=== PATIENT | male | born 1975 | race Caucasian/White ===

== ENCOUNTER 2020-05-03 07:41 | Outpatient (REF) | payer OTHER, SELFPAY ==
--- NOTE | ~2020-05-03 | XR_ITS ---
EXAMINATION: XR SHOULDER, LEFT CLINICAL INFORMATION: Pain left shoulder. COMPARISON: None TECHNIQUE: AP external rotation, Grashey, scapular Y, and axillary views of the left shoulder. FINDINGS: The glenohumeral and AC joint space is maintained normal. There is no visible acute fracture or dislocation. The soft tissues are normal. XR/XR shoulder LT min 2V IMPRESSION: Unremarkable left shoulder joint exam.
== END 2020-05-03 07:42 | disposition home or self-care (01) ==
LOC: HO.HOSX 07:41
PROVIDERS: Visit Provider Orthopaedic Surgery
DX: M24.812 Other specific joint derangements of left shoulder, not elsewhere classified (principal)
CPT/HCPCS: 20610; 73030; 99212; J1100

== ENCOUNTER 2020-06-03 12:54 | Outpatient (REF) | payer OTHER, SELFPAY ==
--- NOTE | ~2020-06-03 | MR_ITS ---
EXAMINATION: MRI SHOULDER, LEFT WITHOUT CONTRAST CLINICAL INFORMATION: Left shoulder pain and decreased range of motion. COMPARISON: Left shoulder radiographs dated 05/03/2020. Left shoulder MRI dated 08/21/2019. TECHNIQUE: Multisequence MR imaging of the left shoulder was performed without contrast on a high-field strength scanner. FINDINGS: ROTATOR CUFF: Prominent supraspinatus and infraspinatus tendinosis with intrasubstance and bursal surface partial tearing involving the mid/posterior aspect of the supraspinatus tendon and anterior aspect of the infraspinatus tendon. This measures approximately 2.9 x 2.7 cm (AP by ML) and has significantly increased in prominence when compared to the prior examination. There appear to be articular surface tendon fibers remaining in intact. Mild subscapularis tendinosis, unchanged. No muscle atrophy or fatty infiltration. BICEPS: Normal. CORACOACROMIAL ARCH: The undersurface of the acromion is curved with no subacromial spur. Mild acromioclavicular osteoarthritis, unchanged. Fluid within the subacromial-subdeltoid bursa, similar when compared to the prior examination and consistent with bursitis. LABRUM/CAPSULE: Probable nondisplaced undersurface tear through the periphery of the posterior labrum, increased in prominence when compared to the prior examination. This extends superiorly to the posterosuperior labrum. Intact joint capsule. GLENOHUMERAL JOINT/MARROW: Intact articular cartilage. No acute osseous abnormality. MR/MR shoulder LT wo con IMPRESSION: 1. Prominent supraspinatus and infraspinatus tendinosis with intrasubstance and bursal surface partial tearing, significantly increased when compared to the prior examination now measuring 2.9 x 2.7 cm (AP by ML). There appear to be thin articular surface tendon fibers remaining intact. Stable, mild subscapularis tendinosis. 2. Mild acromioclavicular osteoarthritis and mild subacromial-subdeltoid bursitis, unchanged. 3. Nondisplaced undersurface tearing of the posterior and posterosuperior labrum, increased in prominence when compared to the prior examination.
== END 2020-06-03 12:55 | disposition home or self-care (01) ==
LOC: HO.MRI 12:54
PROVIDERS: Visit Provider Orthopaedic Surgery
DX: M24.812 Other specific joint derangements of left shoulder, not elsewhere classified (principal)
CPT/HCPCS: 73221

== ENCOUNTER → 2020-06-14 10:51 | Outpatient (BNVA) | payer OTHER, SELFPAY | PROVIDERS: Visit Provider Orthopaedic Surgery | DX: M75.102 Unspecified rotator cuff tear or rupture of left shoulder, not specified as traumatic (principal) | CPT/HCPCS: 99212 ==

== ENCOUNTER → 2020-06-21 11:54 | Outpatient (BNVA) | payer OTHER, SELFPAY | PROVIDERS: PCP Family Medicine; Referring Provider Family Medicine; Visit Provider Surgery | DX: K43.2 Incisional hernia without obstruction or gangrene (principal) | CPT/HCPCS: 99202 ==

== ENCOUNTER 2020-06-30 06:55 | Day surgery (SDC) | payer OTHER, SELFPAY ==
[2020-06-24 15:11] VITALS: BMI 39.0
--- NOTE | 2020-06-29 09:05 | HO.ANESPROP2 ---
Documented by User: Nedra Laurent 06/29/20 09:06 HPI - Anesthesia Eval Consult details Narrative: 44yo M for Left Arthroscopic Rotator Cuff Repair PMFSH Active Problems Active Problems: All Active Problems (Updated 06/24/20 @ 15:15 by Santa Randall) Periumbilical hernia (Acute) Laboratory examination ordered as part of a routine general medical examination (Acute) S/P rotator cuff repair (Acute) Incisional hernia (Acute) Tear of left rotator cuff (Acute) Internal derangement of left shoulder (Acute) Past Medical History Medical History Anxiety Chronic low back pain COVID-19 vaccine administered Depression Erectile dysfunction Incisional hernia Insomnia Internal derangement of left shoulder Obesity Seizure disorder Tear of left rotator cuff Family History Family History Mother Lung cancer Surgical History Surgical History H/O colonoscopy History of back surgery History of hernia repair Social History Social History Are you a primary patient care representative to a significant other at home: No Do you presently have visiting nurse or other home services: No Smoking Status: Current every day smoker Packs Per Day: 1 Cigarettes Per Day: 20.0 Years Smoked: 20 Use of substances other than those prescribed or required for medical reasons: Yes Substance Use Type: Marijuana Substance Use Frequency: Daily Have you been hit, kicked, punched, or otherwise hurt by someone within the past year? 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 Meds Allergies Allergy/AdvReac Type Severity Reaction Status Date / Time latex Allergy Intermediate immediate Verified 06/24/20 15:18 contact dermatitis zolpidem Allergy Seizure Verified 06/30/20 08:19 Home Medications Medication Instructions Recorded Confirmed Last Taken Type pregabalin [Lyrica] 150 mg PO QID 06/24/20 06/30/20 06/30/20 History ropinirole 4 mg PO BEDTIME 06/24/20 06/24/20 Unknown History Exam Exam Date and Time: June 29, 2020 0905 Height,Weight and Vital Signs: Height 6 ft Weight 130.635 kg Assessment and Plan Assessment Anesthesia Assessment: Chart Reviewed Documented by User: Binh Jacob 06/30/20 08:34 PMFSH Past Medical History Medical History Anxiety Chronic low back pain COVID-19 vaccine administered Depression Erectile dysfunction Incisional hernia Insomnia Internal derangement of left shoulder Obesity Seizure disorder Tear of left rotator cuff Family History Family History Mother Lung cancer Surgical History Surgical History H/O colonoscopy History of back surgery History of hernia repair Social History Social History Are you a primary patient care representative to a significant other at home: No Do you presently have visiting nurse or other home services: No Smoking Status: Current every day smoker Packs Per Day: 1 Cigarettes Per Day: 20.0 Years Smoked: 20 Use of substances other than those prescribed or required for medical reasons: Yes Substance Use Type: Marijuana Substance Use Frequency: Daily Have you been hit, kicked, punched, or otherwise hurt by someone within the past year? 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
[2020-06-30] VITALS (20 sets, daily range): BP systolic 118–160; BP diastolic 59–91; PULSE 47–80; RESP 14–20; TEMP 36.1–36.9; O2SAT 94–100
[2020-06-30] MEDS: Lactated Ringers 1,000 ML 100 ML IVCONT (07:19)
--- NOTE | 2020-06-30 07:53 | PC.NURSE ---
pt being blocked by anesthesia marked verbalized understanding pwd vss
--- NOTE | 2020-06-30 08:22 | PC.NURSE ---
vss after and before blocking resting comfortably nad pwd resp easy and reg
--- NOTE | 2020-06-30 10:46 | PM.OP ---
Brief Operative Note Date of Service: 06/30/20 Pre-op diagnosis: left rotator cuff tear Post-op diagnosis: same Procedure: left rotator cuff repair Implants: Short and Nephew helacoil 4.5 double loaded x1 Smtih and Nephew knotless 5.0 x2 Surgeon: Yuri Cerda MD Anesthesia: GETA and regional Was an Dental Service Chief used for this Procedure?: Yes Dental Service Chief: Tahmina Valente Estimated blood loss (mL): 20 IV fluids (mL): 1,000 Pathology: none sent Condition: stable Disposition: PACU
--- NOTE | 2020-06-30 10:52 | P.OP_ITS ---
Operative Note Operative Note Date of Service: 06/30/20 Narrative: Pre-op diagnosis: left rotator cuff tear Post-op diagnosis: same Procedure: left rotator cuff repair Implants: Short and Nephew helacoil 4.5 double loaded x1 Smtih and Nephew knotless 5.0 x2 Surgeon: Yuri Cerda MD Anesthesia: GETA and regional Was an [facility]wife [facility] Birth [facility] Owner used for this Procedure?: Yes Midwife [facility] Birth [facility] Owner: Tahmina Valente Estimated blood loss (mL): 20 IV fluids (mL): 1,000 Pathology: none sent Condition: stable Disposition: PACU Procedure in detail: Patient was brought to the operating room and placed the the beach chair position. All bony prominences were well padded and he was prepped and draped in standard sterile fashion. A time out was called to identify proper site, proper procedure and proper surgeon. IV antibiotics per weight were administered. I began by making a posterolateral stab incision with a 15 blade. A blunt trochar was placed into the glenohumeral joint and I insufflated the joint with saline and a 30 degree arthroscope was placed. I established an outside- in anterior portal just distal to the biceps tendon. I then began my inspection of the glenohumeral joint. There were no cartilage changes and the subscapularis and biceps anchor and labrum were intact and in excellent condition. There was an undersurface supraspinatus tear. I then removed the trochar and entered the subacromial space. A direct lateral portal was then established and I performed a bursectomy. The cuff was then examined. There was a full thickness tear of the supraspinatus measuring approximately 1 cm in diameter without retraction. I used a shaver to identify the healthy tissue and a gio to the gio down the portion of exposed footprint. I then placed one medial row double loaded anchor and added one looped suture and one suture tape and brought 3 limbs to an anterior knotless anchor and then four limbs to a posterior knotless anchor. I had excellent compression of the cuff and reproduction of the footprint. Once I was satisfied with the repair final images were captured. I performed a minimal decompression of the acromion. I then removed all instrumentation. Portals were closed with nylon and sterile dressings were applied.
[2020-06-30] MEDS: oxyCODONE HCl Immed Release 5 MG TABLET 10 MG PO ×2 (11:09→15:00)
[2020-06-30] MEDS: fentaNYL citrate/PF 100 MCG/2 ML VIAL 50 MCG IVPUSH ×2 (11:10→11:15)
[2020-06-30] MEDS: ondansetron HCL 4 MG/2 ML VIAL IVPUSH (11:30)
[2020-06-30] MEDS: HYDROmorphone HCl 0.5 MG/0.5 ML SYRINGE IVPUSH ×3 (11:50→12:15)
== END 2020-06-30 15:36 | disposition home or self-care (01) ==
PROVIDERS: PCP Family Medicine; Visit Provider Orthopaedic Surgery
PROC: (CPT 29827; principal; 2020-06-30 08:30)
DX: M75.102 Unspecified rotator cuff tear or rupture of left shoulder, not specified as traumatic (principal); G40.909 Epilepsy, unspecified, not intractable, without status epilepticus; G89.29 Other chronic pain; M54.5 Low back pain; Z98.1 Arthrodesis status; Z79.899 Other long term (current) drug therapy; F17.210 Nicotine dependence, cigarettes, uncomplicated; F12.90 Cannabis use, unspecified, uncomplicated; Z91.040 Latex allergy status; Z88.8 Allergy status to other drugs, medicaments and biological substances
CPT/HCPCS: 29827; 29826; C1713; J0171; J0690; J1100; J1170; J2250; J2370; J2405; J2550; J3010

== ENCOUNTER → 2020-07-09 12:34 | Outpatient (BNVA) | payer OTHER, SELFPAY | PROVIDERS: PCP Family Medicine; Visit Provider Physician Assistant | DX: M24.812 Other specific joint derangements of left shoulder, not elsewhere classified (principal); M75.102 Unspecified rotator cuff tear or rupture of left shoulder, not specified as traumatic; Z98.890 Other specified postprocedural states | CPT/HCPCS: 99212 ==

== ENCOUNTER 2020-07-21 11:18 | Outpatient (REF) | payer OTHER, SELFPAY ==
--- NOTE | ~2020-07-21 | CT_ITS ---
EXAMINATION: CT ABDOMEN AND PELVIS WITHOUT CONTRAST CLINICAL INFORMATION: Incisional hernia. COMPARISON: None TECHNIQUE: Multidetector volumetric imaging was performed from the superior aspect of the liver through the pubic symphysis. Sagittal and coronal reformatted images were obtained on the technologist's workstation. This CT examination was performed using dose optimization techniques as appropriate, variously including the following: *Automated exposure control *Adjustment of mA and/or kV according to patient size (this includes techniques or standardized protocols for targeted exams where dose is matched to indication/reason for exam; i.e. extremities or head) *Use of iterative reconstruction technique DLP: 923 mGy-cm FINDINGS: LUNG BASES: Partially visualized subpleural nodule within the posterior right lower lobe measuring 0.4 cm (axial image 1/863). Lateral left lower lobe noncalcified nodule measuring 0.6 cm (axial image 70/863). Otherwise, the visualized lung bases are clear. LIVER, GALLBLADDER, AND BILIARY TREE: The liver is normal in size, shape, and attenuation. No focal hepatic lesion or biliary ductal dilatation is present. The gallbladder is unremarkable with no evidence of radiopaque gallstones, gallbladder wall thickening, or obvious pericholecystic inflammatory changes. PANCREAS: Unremarkable. SPLEEN: Unremarkable. ADRENAL GLANDS: Right adrenal nodule measuring 2 x 2.5 x 2 cm (AP x ML x CC) and 1.1 Hounsfield units. Left adrenal nodule measuring 1.5 x 2 x 2.1 cm (AP x ML x CC) and 15 Hounsfield units. KIDNEYS AND URETERS: Malrotated right kidney. Normal renal size and contour. No obvious renal parenchymal lesion, however, evaluation is limited without IV contrast. No renal or ureteral stone. No hydronephrosis or hydroureter. BLADDER: Partially distended and unremarkable. GASTROINTESTINAL TRACT: Unremarkable rectosigmoid anastomosis. No bowel wall thickening or associated inflammatory change. No small or large bowel obstruction. Unremarkable appendix. PERITONEAL CAVITY: No intra-abdominal free air or free fluid. No organized fluid collection/abscess formation. ABDOMINAL WALL: Diastasis of the rectus abdominis muscles extending from the supraumbilical anterior abdomen inferiorly to the anterior pelvic wall. Overall, this area measures up to 23.1 cm in craniocaudal dimension and 9.4 cm in ML dimension inferior to the umbilicus. There are associated fat-containing hernias both on the right and the left at the superior margin with the neck on the right measuring 2.2 cm and the neck on the left measuring 3.9 cm. Small bowel loops abut the diastasis without significant bowel herniation. No associated inflammatory or ischemic change. LYMPH NODES: No significant lymphadenopathy. VASCULAR: Unremarkable. PELVIC VISCERA: The prostate and seminal vesicles are unremarkable. OSSEOUS STRUCTURES: Grade 1 anterolisthesis with posterior stabilization hardware at L4-L5. No evidence of hardware complication. Partial sacralization of the L5 vertebral body. CT/CT abdomen pelvis wo con IMPRESSION: 1. Diastasis of the rectus abdominis muscles extending from the supraumbilical region to the anterior pelvic wall. Overall, this measures up to 23.1 cm in craniocaudal dimension as well as 9.4 cm in maximal ML dimension inferior to the umbilicus. Adjacent fat-containing hernias along the superior margin of the diastasis with a neck measuring 2.2 cm on the right and 3.9 cm on the left. No significant bowel herniation. No associated inflammatory or ischemic change. 2. Bilateral lower lobe noncalcified nodules measuring up to 0.6 cm within the left lower lobe. According to the UPDATED 2017 Fleischner Society recommendations, the advised followup imaging for multiple solid nodules, the largest measuring 6 mm or greater, is: LOW RISK PATIENT: CT at 3-6 months, then consider CT at 18-24 months. HIGH RISK PATIENT: CT at 3-6 months, then at 18-24 months. 3. Bilateral adrenal nodules. The nodule on the right measures up to 2.5 cm and 1.1 Hounsfield units, consistent with a lipid-rich adenoma. No followup imaging is recommended. The nodule on the left measures up to 2.1 cm and 15 Hounsfield units, consistent with a probable adenoma. Adrenal washout CT or chemical shift MRI is recommended to help further evaluate. 4. No intra-abdominal lymphadenopathy or ascites.
== END 2020-07-21 11:19 | disposition home or self-care (01) ==
LOC: HO.CT 11:18
PROVIDERS: Visit Provider Surgery
DX: K43.2 Incisional hernia without obstruction or gangrene (principal)
CPT/HCPCS: 74176

== ENCOUNTER → 2020-07-29 11:20 | Outpatient (BNVA) | payer OTHER, SELFPAY | PROVIDERS: PCP Family Medicine; Referring Provider Family Medicine; Visit Provider Surgery | DX: K42.9 Umbilical hernia without obstruction or gangrene (principal); M62.08 Separation of muscle (nontraumatic), other site | CPT/HCPCS: 99212 ==

== ENCOUNTER → 2020-08-06 10:54 | Outpatient (BNVA) | payer OTHER, SELFPAY | PROVIDERS: Visit Provider Physician Assistant | DX: Z98.890 Other specified postprocedural states (principal) | CPT/HCPCS: 99212 ==

== ENCOUNTER → 2020-09-17 09:42 | Outpatient (BNVA) | payer OTHER, SELFPAY | PROVIDERS: PCP Family Medicine; Visit Provider Physician Assistant | DX: Z98.890 Other specified postprocedural states (principal) | CPT/HCPCS: 99212 ==

== ENCOUNTER 2020-10-21 09:00 | Outpatient (RCR) | payer OTHER, SELFPAY ==
--- NOTE | 2020-09-06 09:48 | MHC.PT.EP ---
[facility] [place] [facility] [place] [facility] [place] Office [address] [phone] F: [phone] F: [phone] F: [phone] F: [phone] Physical Therapy Plan of Care Date of Evaluation: Date of Surgery: 06/30/20 Diagnosis: S/P RC repair Assessment: HILARY IS A PLEASANT 44 YO MALE WHO PRESENTS S/P SUPRASPINATUS REPAIR 06/30/20. DUE TO AN UNRELATED MEDICAL ISSUE HIS PT WAS DELAYED DUE TO HOSPITAL ADMIT. UPON EXAM HE DEMONSTRATES DECREASED SHOULDER ROM AND STRENGTH, ALTERED POSTURE AND POSITIONING WITH INCREASED UPPER TRAP COMPENSATION AND INCREASED PAIN. FUNCTIONAL LIMITATION INCLUDE DECREASED TOLERANCE TO LIFTING, REACHING, PUSHING AND PULLING, DECREASED ABILITY TO PERFORM HOMEMAKING AND SELF CARE TASKS, INABILITY TO PERFORM WORK TASKS, DECREASED PARTICIPATION IN RECREATIONAL AND COMMUNITY ACTIVITIES AND DISRUPTED SLEEP. Frequency and Duration: The patient will be seen 2 X WEEK FOR 6 WEEKS Short Term Goals: INITATE HEP AND PROMOTE SELF MANAGEMENT OF SYMPTOMS IN 2 VISITS Awake Overnight Monitor Goals: Full, pain free ROM in 6 weeks Full UE strength, pain free in 8 weeks To perform computer and work tasks without restriction and pain no greater than 2/10 in [address] at minimum of 5# into cabinet at shoulder height in 6 weeks Treatment Plan: Modalities to reduce pain, spasms and effusion. Manual therapy to restore motion and function. Therapeutic exercise to improve strength and flexibility. Neuromuscular re-education for posture and balance. Therapeutic activities to return to functional activities of daily living. Electronically signed by: BLANCHE MARINELLI PT, DPT Please sign and return to therapist. Thank you for your referral.
--- NOTE | 2020-11-23 11:30 | MHC.PT.DC ---
[facility] [place] Office [place] Office [place] Office [address] [phone] F: [phone] F: [phone] F: [phone] F: [phone] Physical Therapy Discharge Report Diagnosis: RTC repair Date of Surgery: 06/30/20 Date of Evaluation: 09/06/20 Date of Discharge: 10/21/20 Treatments to Date: 11 Cancellations to Date: 0 No Shows to Date: 1 Discharge Status: Improved Function Patient Elected to Stop Discharge Summary: Bryan did not schedule additional PT visits. At last attended session he was progressing we and able to perform floor to waist lifting and pushing/pulling with appropriate body mechanics. He continued to demonstrate difficulty with overhead motion. He has not been to PT in one month and is being DCed at this time. Current status unknown. Electronically signed by: Edna Stewart PT, DPT Please sign and return to therapist. Thank you for your referral.
== END 2020-11-23 11:31 | disposition home or self-care (01) ==
LOC: HO.PT 09:00
PROVIDERS: Visit Provider Physician Assistant
DX: M75.102 Unspecified rotator cuff tear or rupture of left shoulder, not specified as traumatic (principal)
CPT/HCPCS: 97110; 97150; 97161; 97530; 97535

== ENCOUNTER → 2020-10-29 09:19 | Outpatient (BNVA) | payer OTHER, SELFPAY | PROVIDERS: Visit Provider Physician Assistant | DX: Z98.890 Other specified postprocedural states (principal) | CPT/HCPCS: 99212 ==

== ENCOUNTER 2021-07-22 12:06 | Outpatient (REF) | payer OTHER, SELFPAY ==
[2021-07-22 14:42] LABS: Alanine Aminotransferase 49 U/L (0-40); Alkaline Phosphatase 59 U/L (39-117); Anion Gap 11 (12-20); Aspartate Amino Transferase 34 U/L (5-37); Bilirubin Total 0.5 mg/dL (0.0-1.0); Blood Urea Nitrogen 16 mg/dL (9-16); Carbon Dioxide 26 mmol/L (22-29); Chloride 107 mmol/L (96-108); Cholesterol 203 mg/dL; Estimated Glomerular Filt Rate > 60; Glucose Fasting 91 mg/dL (60-99); HDL Cholesterol 30 mg/dL; LDL Cholesterol Calculated 130 mg/dl; Potassium 4.8 mmol/L (3.3-5.1); Sodium 139 mmol/L (135-145); Total Protein 6.9 g/dL (6.5-8.0); Triglycerides 215 mg/dL
[2021-07-22 15:03] LABS: Prostate Specific Antigen Scr 0.33 ng/mL (<0.05-4.0); TSH reflex Free T4 0.46 uIU/mL (0.32-4.0)
== END 2021-07-22 12:07 | disposition home or self-care (01) ==
LOC: HO.WFDLDS 12:06
PROVIDERS: Visit Provider Family Medicine
DX: Z00.00 Encounter for general adult medical examination without abnormal findings (principal); Z12.5 Encounter for screening for malignant neoplasm of prostate
CPT/HCPCS: 36415; 80053; 80061; 84153; 84443

== ENCOUNTER 2022-04-06 11:47 | Outpatient (REF) | payer OTHER, SELFPAY ==
[2022-04-06 14:01] LABS: Appearance Urine Clear; Color Urine Yellow; Glucose Urine UA Negative (Negative); Leukocyte Esterase Urine Negative (Negative); Nitrite Urine Negative (Negative); PH 6.5 (5.0-9.0); Specific Gravity - Urine 1.015 (1.005-1.025); Urine Blood Negative (Negative); Urine Ketones Negative (Negative); Urine Protein Negative (Neg-Trace)
[2022-04-06 14:08] LABS: Alanine Aminotransferase 20 U/L (0-40); Albumin Level 4.3 g/dL (3.5-5.0); Alkaline Phosphatase 57 U/L (39-117); Anion Gap 13 (12-20); Aspartate Amino Transferase 20 U/L (5-37); Bilirubin Total 0.6 mg/dL (0.0-1.0); Blood Urea Nitrogen 16 mg/dL (9-16); Calcium 9.2 mg/dL (8.4-10.2); Carbon Dioxide 27 mmol/L (22-29); Chloride 108 mmol/L (96-108); Cholesterol 212 mg/dL; Estimated Glomerular Filt Rate > 60; Glucose Fasting 85 mg/dL (60-99); HDL Cholesterol 33 mg/dL; LDL Cholesterol Calculated 148 mg/dl; Potassium 4.7 mmol/L (3.3-5.1); Sodium 143 mmol/L (135-145); Total Protein 6.9 g/dL (6.5-8.0); Triglycerides 158 mg/dL
[2022-04-06 14:25] LABS: Prostate Specific Antigen Scr 0.35 ng/mL (<0.05-4.0); TSH reflex Free T4 0.48 uIU/mL (0.32-4.0)
[2022-04-06 14:38] LABS: Creatinine Urine 59.23 mg/dL; Microalbumin Urine < 5.0 mg/L
== END 2022-04-06 11:48 | disposition home or self-care (01) ==
LOC: HO.WFDLDS 11:47
PROVIDERS: Visit Provider Family Medicine
DX: Z00.00 Encounter for general adult medical examination without abnormal findings (principal); Z12.5 Encounter for screening for malignant neoplasm of prostate; I10 Essential (primary) hypertension
CPT/HCPCS: 36415; 80053; 80061; 81003; 82043; 84153; 84443

== ENCOUNTER 2022-10-02 11:20 | Outpatient (REF) | payer OTHER, SELFPAY ==
[2022-10-03 01:51] LABS: Anion Gap 11 (12-20); Blood Urea Nitrogen 17 mg/dL (9-16); Calcium 8.8 mg/dL (8.4-10.2); Carbon Dioxide 23 mmol/L (22-29); Chloride 112 mmol/L (96-108); Cholesterol 183 mg/dL; Estimated Glomerular Filt Rate > 60; Glucose Fasting 86 mg/dL (60-99); HDL Cholesterol 33 mg/dL; LDL Cholesterol Calculated 112 mg/dl; Potassium 4.2 mmol/L (3.3-5.1); Sodium 142 mmol/L (135-145); Triglycerides 192 mg/dL
== END 2022-10-02 11:21 | disposition home or self-care (01) ==
LOC: HO.LAB 11:20
PROVIDERS: PCP Family Medicine; Visit Provider Family Medicine
DX: Z00.00 Encounter for general adult medical examination without abnormal findings (principal); E78.5 Hyperlipidemia, unspecified
CPT/HCPCS: 36415; 80048; 80061

== ENCOUNTER 2022-10-24 10:31 | Outpatient (AMB) | payer OTHER, SELFPAY ==
[2022-10-24 10:33] VITALS: BP 122/68; PULSE 66; RESP 20; O2SAT 99; BMI 35.1
--- NOTE | 2022-10-24 10:33 | MHC.PC.OV ---
Vital Signs 10/24/22 10:33 Height 6 ft Weight 259 lb 2 oz BMI 35.1 BP 122/68 Blood Pressure Location Lt brachial Position Sitting Respiration 20 Pulse 66 Pulse Source Pulse Oximeter Pulse Oximetry (%) 99 Oxygen Delivery Method Room Air Intake Visit Reasons: f/u HLD Intake Note: Patient is here for follow up on blood work. Allergies latex Allergy (Intermediate, Verified 10/24/22 10:35) immediate contact dermatitis zolpidem Allergy (Verified 10/24/22 10:35) Seizure Tobacco use date assessed: 10/24/22 Dental Screening Dental Screen Date: 10/24/22 Did you have a dental visit in the last 12 months?: No Did you have a dental problem in the last 6 months where you did not have access to dental care?: No Was dental information given to patient?: Patient declined HPI f/u HLD HPI Details 46 y/o male presents to f/u hyperlipidemia. Pt had been losing weight and working at lifestyle changes. Labs were drawn 10/02/22. Reviewed labs with pt. Triglycerides 192. TC 183. LDL 112 - improved from 148. HDL low at 33. Pt continues to lose weight - 265 lbs in June to 259 lbs in October. HPI Comments History of Present Illness Details Documentation assistance for Claude Kelsey MD, was provided by Baljinder Caban, Twisting Operator on 10/24/2022 10:56 AM EST. I, Dr. Kelsey, have read, observed, and verified documentation. PFSH Medical History Anxiety Chronic low back pain COVID-19 vaccine administered Depression Diastasis recti Erectile dysfunction Incisional hernia Insomnia Internal derangement of left shoulder Obesity Seizure disorder Tear of left rotator cuff Surgical History H/O colonoscopy History of back surgery History of hernia repair History of rotator cuff surgery Family History Mother Lung cancer Social History Housing: Condominium Are you a primary interior plant caretaker to a significant other at home: No Do you presently have visiting nurse or other home services: No Alcohol intake: never Patient Tobacco Use Status: Current everyday Tobacco user Tobacco use type: Cigarette Cigarette Packs Per Day: 0.5 Cigarettes Per Day: 10 Years Smoked: 20 e-Cigarette/Vaping Use: Never Used Second Hand Smoke Exposure: Yes Substance Use Type: Marijuana service: No Current occupational status: employed 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 Bryan Lombardi, Alanna Schreiber, Noman Andrade and colleagues, with an educational christina from [employer]. Review of Systems Const Denies chills, Denies fatigue, Denies fever(s), Denies headache(s) and Denies weakness ENT Denies dizziness and Denies headache(s) Card Denies dyspnea Resp Denies cough, Denies dyspnea, Denies wheezing and Denies other (shortness of breath) Musc Denies numbness and Denies tingling Neuro Denies dizziness, Denies headache(s), Denies numbness, Denies tingling and Denies weakness Psych Denies anxiety and Denies depression Endo Denies fatigue Aller/Immun Denies wheezing Physical exam (Primary Care) Vital Signs: Last Vital Signs Pulse 66 10/24/22 10:33 Resp 20 10/24/22 10:33 BP 122/68 10/24/22 10:33 Pulse Ox 99 10/24/22 10:33 Oxygen Delivery Method Room Air 10/24/22 10:33 BMI result Body Mass Index 35.1 Tobacco/Smoking Status: Tobacco use Status Tobacco use date assessed 10/24/22 10/24/22 10:37 Patient Tobacco Use Status Current everyday Tobacco 10/24/22 10:37 Tobacco use type Cigarette 10/24/22 10:37 e-Cigarette/Vaping Use Never Used 10/24/22 10:37 Thrive Assessment: Date of Thrive Assessment Date Thrive assessed 08/01/21 10/24/22 10:37 Const General: well developed; No acute distress Nutritional Appearance: well nourished Orientation/consciousness: patient oriented x3 HENMT Head: Yes normocephalic and Yes atraumatic Eyes General: appearance normal, both eyes and all related structures Pupils: Equal, round and reactive pupils present EOM: EOMs intact bilaterally Resp Effort & Inspection: normal respiratory effort Neuro General: patient oriented x3 and gait normal Cranial nerves: Yes Equal, round and reactive pupils present Psych Affect: normal affect Assessment and Plan Assessment & Plan (1) Hyperlipidemia: Code(s): E78.5 - Hyperlipidemia, unspecified Plan: LDL cholesterol improved Continue weight loss and diet lower in saturated fats and cholesterol Increase exercise (2) Low HDL (under 40): Code(s): E78.6 - Lipoprotein deficiency Plan: Ongoing low HDL Increase exercise (3) Chronic low back pain: Comment: taking lyrica Code(s): M54.5 - Low back pain; G89.29 - Other chronic pain Plan: Chronic right low back pain with radiation into right leg Patient requests referral to Dr. Alvarez - referral made Orders: Referrals Neurosurgery Referral G89.29 - Other chronic pain, M54.5 - Low back pain Coding Level of Care Code Est Pt Level 3 (35796) Diagnoses Hyperlipidemia E78.5 Low HDL (under 40) E78.6 Chronic low back pain M54.5; G89.29
== END 2022-10-24 11:03 | disposition home or self-care (01) ==
PROVIDERS: PCP Family Medicine; Visit Provider Family Medicine
DX: E78.5 Hyperlipidemia, unspecified (principal); E78.6 Lipoprotein deficiency; M54.50 Low back pain, unspecified; G89.29 Other chronic pain
CPT/HCPCS: 99213

== ENCOUNTER 2023-04-24 10:41 | Outpatient (AMB) | payer OTHER, SELFPAY ==
[2023-04-24 10:45] VITALS: BP 132/78; PULSE 71; O2SAT 99; BMI 34.3
--- NOTE | 2023-04-24 10:45 | A.OFFPC_ITS ---
Vital Signs 04/24/23 10:45 Height 6 ft Weight 253 lb BMI 34.3 BP 132/78 Blood Pressure Location Rt brachial Position Sitting Pulse 71 Pulse Source Pulse Oximeter Pulse Oximetry (%) 99 Oxygen Delivery Method Room Air Intake Visit Reasons: f/u hypercholesterolemia Intake Note: Patient is here to follow up on cholesterol today, and complains of nasty cough since last week with mucous. Allergies latex Allergy (Intermediate, Verified 04/24/23 10:48) immediate contact dermatitis zolpidem Allergy (Verified 04/24/23 10:48) Seizure Tobacco use date assessed: 04/24/23 Dental Screening Dental Screen Date: 04/24/23 Did you have a dental visit in the last 12 months?: Yes Did you have a dental problem in the last 6 months where you did not have access to dental care?: No Was dental information given to patient?: Patient has dentist HPI f/u hypercholesterolemia HPI Details 47 y/o male presents to f/u hypercholest erolemia. No recent labs to review for his lipids. Pt continues to lose weight - from 259 lbs in October to 253 lbs on 04/24/23. Pt reports abd. pain PFSH Medical History Diastasis recti COVID-19 vaccine administered Incisional hernia Tear of left rotator cuff Internal derangement of left shoulder Obesity Seizure disorder Chronic low back pain Insomnia Erectile dysfunction Depression Anxiety Surgical History History of rotator cuff surgery H/O colonoscopy History of hernia repair History of back surgery Family History Mother Lung cancer Social History Housing: Condominium Are you a primary career and technology education teacher to a significant other at home: No Do you presently have visiting nurse or other home services: No Alcohol intake: never Comment: medicated, see MAR Patient Tobacco Use Status: Current everyday Tobacco user Tobacco use type: Cigarette Cigarette Packs Per Day: 0.5 Cigarettes Per Day: 10 Years Smoked: 20 e-Cigarette/Vaping Use: Never Used Second Hand Smoke Exposure: Yes Substance Use Type: Marijuana service: No Current occupational status: employed 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 1. Little interest or pleasure in doing things: not at all 2. Feeling down, depressed, or hopeless: not at all 3. Trouble falling or staying asleep, or sleeping too much: not at all 4. Feeling tired or having little energy: not at all 5. Poor appetite or overeating: not at all 6. Feeling bad about yourself - or that you are a failure or have let yourself or your family down: not at all 7. Trouble concentrating on things, such as reading the newspaper or watching television: not at all 8. Moving or speaking so slowly that other people could have noticed. Or the opposite - being so fidgety or restless that you have been moving around a lot more than usual: not at all 9. Thoughts that you would be better off or of hurting yourself in some way: not at all Total score: 0 Depression Screening Interpretation: Negative Depression Screening Done: Yes Source: Developed by Drs. Bryan Lombardi, Alanna Schreiber, Noman Andrade and colleagues, with an educational christina from [employer] Thrive Questionnaire Date Thrive assessed: 04/24/23 I am a: Patient What is your living situation today?: I have a steady place to live Within the past 12 months, did the food you bought not last and you didn't have the money to get more?: Never true Within the past 12 months, did you worry whether your food would run out before you got money to buy more?: Never true Do you have trouble paying for medicines?: No Do you have trouble getting transportation to medical appointments?: No Do you have trouble paying your heating and electricity bill?: No Do you have trouble taking care of your child, family member or friend?: No Do you have trouble with day-to-day activities such as bathing, preparing meals, shopping, managing finances, etc.?: No Are you currently unemployed and looking for a job?: No Are you interested in more education?: No THRIVE Score: 0 AUDIT C Alcohol Use Questionnaire (AUDIT-C) 1. How often do you have a drink containing alcohol?: Never 3. How often do you have six or more drinks on one occasion?: Never Total Score: 0 BABAR-7 AMB Questionnaire BABAR-7 Date BABAR - 7 assessed: 04/24/23 Feeling nervous, anxious, or on edge: 3 = Nearly every day Not being able to stop or control worryin = Nearly every day Worrying too much about different things: 3 = Nearly every day Trouble relaxin = Nearly every day Being so restless that it is hard to sit still: 3 = Nearly every day Becoming easily annoyed or irritable: 2 = More than half the days Feeling afraid as if something awful might happen: 3 = Nearly every day Total BABAR-7 score (0-4 normal; 5-9 mild; 10-14 moderate; 15-21 severe): 20 Source: Developed by Drs. Bryan Lombardi, Alanna Schreiber, Noman Andrade and colleagues, with an educational christina from [employer] Review of Systems Const Denies chills, Denies fatigue, Denies fever(s), Denies headache(s) and Denies weakness ENT Denies dizziness and Denies headache(s) Card Denies chest pain, Denies lightheadedness, Denies dyspnea and Denies other (Palpitations) Resp Denies cough, Denies dyspnea, Denies wheezing and Denies other ( shortness of breath) GI Reports abdominal pain Musc Denies numbness and Denies tingling Neuro Denies dizziness, Denies headache(s), Denies numbness, Denies tingling, Denies paresthesias and Denies weakness Psych Denies anxiety and Denies depression Endo Denies fatigue Aller/Immun Denies wheezing Physical exam (Primary Care) Vital Signs: Last Vital Signs Pulse 71 04/24/23 10:45 BP 132/78 04/24/23 10:45 Pulse Ox 99 04/24/23 10:45 Oxygen Delivery Method Room Air 04/24/23 10:45 BMI result Body Mass Index 34.3 Tobacco/Smoking Status: Tobacco use Status Tobacco use date assessed 04/24/23 04/24/23 10:49 Patient Tobacco Use Status Current everyday Tobacco 04/24/23 10:49 Tobacco use type Cigarette 04/24/23 10:49 e-Cigarette/Vaping Use Never Used 04/24/23 10:49 PHQ-9: PHQ-9 Score PHQ-9: Total score 0 04/24/23 11:00 Depression Screening Interpretation: Negative Thrive Assessment: Date of Thrive Assessment Date Thrive assessed 04/24/23 04/24/23 10:58 Const General: no acute distress and well developed Nutritional Appearance: well nourished Orientation/consciousness: patient oriented x3 HENMT Head: Yes normocephalic and Yes atraumatic Eyes General: appearance normal, both eyes and all related structures Pupils: Equal, round and reactive pupils present EOM: EOMs intact bilaterally Resp Effort & Inspection: normal respiratory effort Auscultation: clear to auscultation bilaterally Cardio Rate: regular rate Rhythm: regular rhythm Heart sounds: S1 normal heart sound present, S2 normal heart sound present, no gallops, no murmurs and no rubs GI Other: Large umbillical hernia Neuro General: patient oriented x3 and gait normal Cranial nerves: Yes Equal, round and reactive pupils present Psych Affect: normal affect Assessment and Plan Assessment & Plan (1) Hyperlipidemia: Code(s): E78.5 - Hyperlipidemia, unspecified Plan: Lipids?much?improved?though?HDL?is?still?too?low Continue?diet?low?in?saturated?fats?and?cholesterol Increase?exercise (2) Bronchitis: Code(s): J40 - Bronchitis, not specified as acute or chronic Plan: Recent?viral?illness?which?has?re solved?but?patient?has?lingering?symptoms?and?bronchitis Gave?him?a?script?for?Z-Giovani?and?short?course?of?prednisone Advised?smoking?cessation (3) Smoker: Code(s): F17.200 - Nicotine dependence, unspecified, uncomplicated Plan: Advised?weaning?and?cessation. Patient?wants?to?consider?this?t his?year?and?I?let?him?know?he?can?contact?me?to?discuss?further. (4) Umbilical hernia: Code(s): K42.9 - Umbilical hernia without obstruction or gangrene Plan: History?of?umbilical?hernia?repair. Had?been?seen?by?General?surgery?and?at?that?time?there?was?no?indication?for?bridges rgery. However,?with?ongoing?weight?loss, patient?notes?worsening?pain?at?this?area. Referred?back?to?General?surgery. Orders: Orders Comprehensive [place]. Panel Fast Today E78.6 - Lipoprotein deficiency, Z00.00 - Encounter for general adult medical examination without abnormal findings PT Evaluation and Treatment Today G89.29 - Other chronic pain, M54.5 - Low back pain Lipid Panel Today Z00.00 - Encounter for general adult medical examination without abnormal findings Referrals General Surgery Referral K42.9 - Umbilical hernia without obstruction or gangrene Medications: New prednisone 40 mg (2 x 20 mg) PO DAILY 10 tabs 0RF 5 days Coding Level of Care Code Est Pt Level 3 (34989) Diagnoses Hyperlipidemia E78.5 Bronchitis J40 Smoker F17.200 Umbilical hernia K42.9
== END 2023-04-24 11:15 | disposition home or self-care (01) ==
PROVIDERS: PCP Family Medicine; Visit Provider Family Medicine
DX: E78.5 Hyperlipidemia, unspecified (principal); J40 Bronchitis, not specified as acute or chronic; F17.200 Nicotine dependence, unspecified, uncomplicated; K42.9 Umbilical hernia without obstruction or gangrene
CPT/HCPCS: 99213

== ENCOUNTER 2023-05-08 13:28 | Outpatient (AMB) | payer OTHER, SELFPAY ==
[2023-05-08 13:29] VITALS: BP 132/78; PULSE 71; BMI 34.3
--- NOTE | 2023-05-08 13:29 | MHC.OFFVIS ---
Intake Vital Signs 05/08/23 13:29 Height 6 ft Weight 253 lb BMI 34.3 BP 132/78 Blood Pressure Location Rt brachial Position Sitting Pulse 71 Intake Visit Reasons: Umbilical hernia Intake Note: Patient referred by PCP Dr. Kelsey for umbilical hernia. Present for yrs. Patient c/o: bulging, painful. Denies constipation, diarrhea. Hot Walker Required: No Accompanied by: Spouse Allergies latex Allergy (Intermediate, Verified 05/08/23 13:33) immediate contact dermatitis zolpidem Allergy (Verified 05/08/23 13:33) Seizure Medication List - Last Reconciled 05/08/23 by Piotr Farfan MD pregabalin 150 mg PO QID 90 days topiramate 50 mg PO DAILY 90 days HPI HPI Comments History of Present Illness Details Patient presents because of symptomatic ventral hernia. Twenty some odd years ago in [place] patient exploratory laparotomy for perforated diverticulitis. Apparently had primary anastomosis and no colostomy. Over the last 10 or so years he has been complaining of a left incisional mass/hernia. He was seen by a general surgeon for this who mandated he lose weight before any procedure will be undertaken along with stopping his cigarette smoking. Patient has lost approximately 60 lb but continues to smoke approximately half pack a day of cigarettes. Patient otherwise tolerating his diet although he has low appetite secondary to hernia discomfort. He is having regular bowel habits. Chart was reviewed and patient evaluated. Patient was present with his significant other/ [facility] Medical History Diastasis recti COVID-19 vaccine administered Incisional hernia Tear of left rotator cuff Internal derangement of left shoulder Obesity Seizure disorder Chronic low back pain Insomnia Erectile dysfunction Depression Anxiety Surgical History History of rotator cuff surgery H/O colonoscopy History of hernia repair History of back surgery Family History Mother Lung cancer Social History Housing: Condominium Are you a primary critical care rn to a significant other at home: No Do you presently have visiting nurse or other home services: No Alcohol intake: never Comment: medicated, see MAR Patient Tobacco Use Status: Current everyday Tobacco user Tobacco use type: Cigarette Cigarette Packs Per Day: 0.5 Cigarettes Per Day: 10 Years Smoked: 20 e-Cigarette/Vaping Use: Never Used Second Hand Smoke Exposure: Yes Substance Use Type: Marijuana service: No Current occupational status: employed 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 Midline incision extending above the umbilicus. Patient has a left periumbilical hernia large irreducible. There is a question of a 2nd hernia. Patient's abdomen is very corpulent and difficult to assess if he does have other hernias. Bilateral groin exam grossly negative. Genitalia within normal limits. Assessment & Plan Assessment & Plan (1) Ventral hernia: Code(s): K43.9 - Ventral hernia without obstruction or gangrene Plan: Discussed with the patient's size, the current plan is to arrange for CT scan to further evaluate hit his abdomen to CVS 1 or multiple hernia which will determine what type of operative intervention will be undertaken. All questions answered. Arrangements will be made for this. He will see me after the study. Orders: Orders CT abdomen pelvis wo/w IV con Today K43.9 - Ventral hernia without obstruction or gangrene Coding Level of Care Code New Pt Level 4 (79415) Diagnoses Ventral hernia K43.9
== END 2023-05-08 13:45 | disposition home or self-care (01) ==
PROVIDERS: PCP Family Medicine; Referring Provider Family Medicine; Visit Provider Surgery
DX: K43.9 Ventral hernia without obstruction or gangrene (principal)
CPT/HCPCS: 99204

== ENCOUNTER → 2023-05-08 13:28 | Outpatient (BNVA) | payer OTHER, SELFPAY | PROVIDERS: PCP Family Medicine; Referring Provider Family Medicine; Visit Provider Surgery | DX: K43.9 Ventral hernia without obstruction or gangrene (principal) | CPT/HCPCS: 99202 ==

== ENCOUNTER 2023-05-28 12:18 | Outpatient (REF) | payer OTHER, SELFPAY ==
--- NOTE | ~2023-05-28 | CT_ITS ---
EXAMINATION: CT ABDOMEN AND PELVIS WITH CONTRAST CLINICAL INFORMATION: Ventral hernia. COMPARISON: 07/21/2020 TECHNIQUE: Multidetector volumetric images were obtained from the superior aspect of the liver through the pubic symphysis following administration 85 mL of Omnipaque 350 intravenous contrast. Sagittal and coronal reformatted images were obtained on the technologist's workstation. Oral contrast: No This CT examination was performed using dose optimization techniques as appropriate, variously including the following: *Automated exposure control *Adjustment of mA and/or kV according to patient size (this includes techniques or standardized protocols for targeted exams where dose is matched to indication/reason for exam; i.e. extremities or head) *Use of iterative reconstruction technique DLP: 611 mGy-cm FINDINGS: LUNG BASES: Stable 4 mm nodule right lower lobe on image 7 of series 7. Stable 4 mm nodule left lower lobe on image 14 of series 7. LIVER, GALLBLADDER, AND BILIARY TREE: The liver is normal in 5 and contour. No focal hepatic lesion or biliary ductal dilatation is present. The gallbladder is unremarkable with no evidence of radiopaque gallstones, gallbladder wall thickening, or obvious pericholecystic inflammatory changes. PANCREAS: Unremarkable. SPLEEN: Not enlarged. ADRENAL GLANDS: 2.5 cm left adrenal nodule. 2.6 cm right adrenal nodule. 2.1 cm right adrenal nodule. KIDNEYS AND URETERS: Malrotated right kidney. The kidneys enhancement. No hydronephrosis or perinephric fluid collection. BLADDER: Unremarkable. GASTROINTESTINAL TRACT: Small and large bowel loops are of normal caliber. No small bowel obstruction. There is a staple line sigmoid colon the appendix is within normal ABDOMINAL WALL: Diastases recti. There is a right eccentric ventral hernia containing fat measuring 7.4 x 2.3 x 4.6 cm with neck measuring 2.4 cm. There is a left eccentric ventral hernia containing fat measuring 4.8 x 2.1 x 6.3 cm with neck measuring 4.0 cm. There is evidence of prior hernia repair with surgical mesh in place. LYMPH NODES: No bulky lymphadenopathy. VASCULAR: Normal caliber abdominal aorta. PELVIC VISCERA: Unremarkable. OSSEOUS STRUCTURES: Posterior lumbar fusion at L5-S1. No destructive bone lesions. CT/CT abdomen pelvis w IV con IMPRESSION: Prior ventral hernia repair with surgical mesh in place. There are ventral hernias containing fat as described above. No associated inflammatory changes. Diastases recti. The appearance is similar to prior imaging. Stable bilateral lower lobe pulmonary nodules dating back to 07/21/2020. Bilateral adrenal nodules as described above. Recommend consideration of laboratory evaluation for possible pheochromocytoma and then subsequent evaluation with Adrenal Protocol CT.
[2023-05-28 13:39] LABS: Alanine Aminotransferase 15 U/L (0-40); Albumin Level 4.1 g/dL (3.5-5.0); Alkaline Phosphatase 50 U/L (39-117); Anion Gap 8 (12-20); Aspartate Amino Transferase 15 U/L (5-37); Bilirubin Total 0.4 mg/dL (0.0-1.0); Blood Urea Nitrogen 17 mg/dL (9-16); Calcium 8.9 mg/dL (8.4-10.2); Carbon Dioxide 26 mmol/L (22-29); Chloride 112 mmol/L (96-108); Cholesterol 171 mg/dL (<200); Estimated Glomerular Filt Rate > 60; Glucose Fasting 80 mg/dL (60-99); HDL Cholesterol 29 mg/dL (>40); LDL Cholesterol Calculated 110 mg/dL (<100); Potassium 4.4 mmol/L (3.3-5.1); Sodium 142 mmol/L (135-145); Triglycerides 161 mg/dL (<150)
[2023-05-28] MEDS: iohexoL 350 MG/ML 100 ML INFUS..BTL IV (15:04)
[2023-05-28] MEDS: Barium Sulfate Oral (Vanilla) 450 ML ORAL.SUSP 900 ML PO (15:05)
== END 2023-05-28 12:19 | disposition home or self-care (01) ==
LOC: HO.CT 12:18
PROVIDERS: PCP Family Medicine; Visit Provider Surgery
DX: Z00.00 Encounter for general adult medical examination without abnormal findings (principal); K43.9 Ventral hernia without obstruction or gangrene; E78.5 Hyperlipidemia, unspecified
CPT/HCPCS: 36415; 74177; 80053; 80061; Q9967

== ENCOUNTER 2023-05-29 09:31 | Outpatient (AMB) | payer OTHER, SELFPAY ==
[2023-05-29 09:35] VITALS: BP 130/77; PULSE 66; BMI 34.6
--- NOTE | 2023-05-29 09:35 | A.OFFVIS_ITS ---
Intake Vital Signs 05/29/23 09:35 Height 6 ft Weight 255 lb BMI 34.6 BP 130/77 Blood Pressure Location Rt brachial Position Sitting Pulse 66 Intake Visit Reasons: Ventral hernia, CT results Intake Note: Patient here to discuss Abd CT scan results. Patient c/o ventral hernia pain. Diamond Powder Technician Required: No Accompanied by: Spouse Allergies latex Allergy (Intermediate, Verified 05/29/23 09:36) immediate contact dermatitis zolpidem Allergy (Verified 05/29/23 09:36) Seizure HPI HPI Comments History of Present Illness Details Patient presents with a significant other for follow-up status post CT scan. This demonstrated not only a 2nd hernia and also significant rectus diastasis. Patient has incidental finding of bilateral adrenal masses which I suggested to patient should be addressed by his medical doctor. Patient also has stable bilateral lung nodules [facility] Medical History Diastasis recti COVID-19 vaccine administered Incisional hernia Tear of left rotator cuff Internal derangement of left shoulder Obesity Seizure disorder Chronic low back pain Insomnia Erectile dysfunction Depression Anxiety Surgical History History of rotator cuff surgery H/O colonoscopy History of hernia repair History of back surgery Family History Mother Lung cancer [facility] History [facility] Are you a primary care coordination manager to a significant other at home: No Do you presently have visiting nurse or other home services: No Alcohol intake: never Comment: medicated, see MAR Patient Tobacco Use Status: Current everyday Tobacco user Tobacco use type: Cigarette Cigarette Packs Per Day: 0.5 Cigarettes Per Day: 10 Years Smoked: 20 e-Cigarette/Vaping Use: Never Used Second Hand Smoke Exposure: Yes Substance Use Type: Marijuana service: No Current occupational status: employed 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 Very corpulent abdomen. Right and left para umbilical hernias. Significant rectus diastasis. Assessment & Plan Assessment & Plan (1) Ventral hernia: Code(s): K43.9 - Ventral hernia without obstruction or gangrene (2) Umbilical hernia: Code(s): K42.9 - Umbilical hernia without obstruction or gangrene (3) Incisional hernia: Code(s): K43.2 - Incisional hernia without obstruction or gangrene (4) Rectus diastasis: Code(s): M62.08 - Separation of muscle (nontraumatic), other site Plan Because of the magnitude of the patient's abdominal wall pathology coupled with his multiple prior surgeries for attempted repair, by current recommendation is to refer him to Dr. Rivas Brito at [facility] [place] for consideration for component separation procedure. 0 all questions answered. Arrangements were made for this. Coding Level of Care Code Est Pt Level 4 (46979) Diagnoses Ventral hernia K43.9 Umbilical hernia K42.9 Incisional hernia K43.2 Rectus diastasis M62.08
== END 2023-05-29 10:03 | disposition home or self-care (01) ==
PROVIDERS: PCP Family Medicine; Visit Provider Surgery
DX: K43.9 Ventral hernia without obstruction or gangrene (principal); K42.9 Umbilical hernia without obstruction or gangrene; K43.2 Incisional hernia without obstruction or gangrene; M62.08 Separation of muscle (nontraumatic), other site
CPT/HCPCS: 99214

== ENCOUNTER → 2023-05-29 09:31 | Outpatient (BNVA) | payer OTHER, SELFPAY | PROVIDERS: PCP Family Medicine; Visit Provider Surgery | DX: K43.9 Ventral hernia without obstruction or gangrene (principal); K42.9 Umbilical hernia without obstruction or gangrene; K43.2 Incisional hernia without obstruction or gangrene; M62.08 Separation of muscle (nontraumatic), other site | CPT/HCPCS: 99212 ==

== ENCOUNTER → 2023-07-24 11:44 | Outpatient (AMB) | payer OTHER, SELFPAY ==
--- NOTE | 2023-07-24 12:19 | A.OFFPC_ITS ---
Vital Signs 07/24/23 12:20 Height 6 ft Weight 254 lb BMI 34.4 BP 134/78 Blood Pressure Location Lt brachial Position Sitting Pulse 58 Pulse Source Pulse Oximeter Pulse Oximetry (%) 100 Oxygen Delivery Method Room Air Intake Visit Reasons: f/u back pain, chronic conditions Intake Note: Patient is here for follow up on back pain and chronic conditions. He states he still has pain. Patient would like to talk about Topiramate, he also states he gets irritated easily. Allergies latex Allergy (Intermediate, Verified 07/24/23 12:21) immediate contact dermatitis zolpidem Allergy (Verified 07/24/23 12:21) Seizure Medication List - Last Reconciled 07/24/23 by Claude Kelsey MD pregabalin 150 mg PO QID 90 days topiramate 50 mg PO DAILY 90 days Tobacco use date assessed: 04/24/23 Dental Screening Dental Screen Date: 04/24/23 HPI f/u back pain, chronic conditions HPI Details 47 y/o male presents to f/u chronic back pain and chronic conditions. Had referred him to PT at last office visit. Labs were drawn 05/28/23. Reviewed labs with pt. Triglycerides 161. TC 171. LDL 110. HDL low at 29. HPI Comments History of Present Illness Details Documentation assistance for Claude Kelsey MD, was provided by Baljinder Caban, Wheel Fitter on 07/24/2023 at 1:00 PM EST. I, Dr. Kelsey, have read, observed, and verified documentation. [facility] Medical History Diastasis recti COVID-19 vaccine administered Incisional hernia Tear of left rotator cuff Internal derangement of left shoulder Obesity Seizure disorder Chronic low back pain Insomnia Erectile dysfunction Depression Anxiety Surgical History History of rotator cuff surgery H/O colonoscopy History of hernia repair History of back surgery Family History Mother Lung cancer Social History Housing: Condominium Are you a primary hearing healthcare practitioner to a significant other at home: No Do you presently have visiting nurse or other home services: No Alcohol intake: never Comment: medicated, see MAR Patient Tobacco Use Status: Current everyday Tobacco user Tobacco use type: Cigarette Cigarette Packs Per Day: 0.5 Cigarettes Per Day: 10 Years Smoked: 20 e-Cigarette/Vaping Use: Never Used Second Hand Smoke Exposure: Yes Substance Use Type: Marijuana service: No Current occupational status: employed 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 Current occupational exposures/hazards: No Cognitive needs: No Hearing needs: No Vision needs: No Questionnaire Thrive Questionnaire Date Thrive assessed: 04/24/23 BABAR-7 AMB Questionnaire BABAR-7 Date BABAR - 7 assessed: 07/24/23 Feeling nervous, anxious, or on edge: 2 = More than half the days Not being able to stop or control worryin = Not at all Worrying too much about different things: 1 = Several days Trouble relaxin = Nearly every day Being so restless that it is hard to sit still: 2 = More than half the days Becoming easily annoyed or irritable: 3 = Nearly every day Feeling afraid as if something awful might happen: 3 = Nearly every day Total BABAR-7 score (0-4 normal; 5-9 mild; 10-14 moderate; 15-21 severe): 14 Source: Developed by Drs. Bryan Lombardi, Alanna Schreiber, Noman Andrade and colleagues, with an educational christina from [employer]. Review of Systems Const Denies chills, Denies fatigue, Denies fever(s), Denies headache(s) and Denies weakness ENT Denies dizziness and Denies headache(s) Card Denies dyspnea Resp Denies cough, Denies dyspnea, Denies wheezing and Denies other (shortness of breath) Musc Reports back pain, Denies numbness and Denies tingling Neuro Denies dizziness, Denies headache(s), Denies numbness, Denies tingling and Denies weakness Psych Denies anxiety and Denies depression Endo Denies fatigue Aller/Immun Denies wheezing Physical exam (Primary Care) Vital Signs: Last Vital Signs Pulse 58 07/24/23 12:20 BP 134/78 07/24/23 12:20 Pulse Ox 100 07/24/23 12:20 Oxygen Delivery Method Room Air 07/24/23 12:20 BMI result Body Mass Index 34.4 Tobacco/Smoking Status: Tobacco use Status Tobacco use date assessed 04/24/23 07/24/23 12:27 Patient Tobacco Use Status Current everyday Tobacco 07/24/23 12:27 Tobacco use type Cigarette 07/24/23 12:27 e-Cigarette/Vaping Use Never Used 07/24/23 12:27 Thrive Assessment: Date of Thrive Assessment Date Thrive assessed 04/24/23 07/24/23 12:27 Const General: well developed; No acute distress Nutritional Appearance: well nourished Orientation/consciousness: patient oriented x3 HENMT Head: Yes normocephalic and Yes atraumatic Eyes General: appearance normal, both eyes and all related structures Pupils: Equal, round and reactive pupils present EOM: EOMs intact bilaterally Resp Effort & Inspection: normal respiratory effort Neuro General: patient oriented x3 and gait normal Cranial nerves: Yes Equal, round and reactive pupils present Psych Affect: normal affect Assessment and Plan Assessment & Plan (1) Chronic low back pain: Comment: taking lyrica Code(s): M54.5 - Low back pain; G89.29 - Other chronic pain Plan: Ongoing?low?back?pain. Patient?says?he?has?had?effusion?and?significant?spondylosis and?nerve?impingements. I?do?not?have?any?records?from?prior?neurosurgeon?or?prior?PCP. Gave?him?release?of?information?forms?though? he?has?said?he?is?fill?these?out?in?the?past.??We?do?not?have?the?[facility] on?file. Check?x-rays?of?lumbar?spine Referred?for?physical?therapy Will?follow-up?in?a?month?to?review?images?and?see?how?he?is?progressing?with?PT Continue?pregabalin He?has?had?meloxicam?in?the?past?and?I?sent?a?new?script?for?this.??Bothers?his? stomach?a?little?bit?so?he?will?use?with?care.??Discussed?possible?Celebrex. Will?give?him?a?short?course?of?prednisone?for?5?days?then?he?can?begin?timmy dominguez (2) Ventral hernia: Code(s): K43.9 - Ventral hernia without obstruction or gangrene Plan: Severe?ventral?hernia?and?patient?saw?[facility]?general?surgery.??They?referred?him?to ?surgery?at[facility] Patient?did?not?feel?confident?with?that?specialist. He?wants?a?new?referral?and?I?am?referring?him?to?[facility]?General?surgery. Orders: Orders XR lumbar spine 2-3V Today G89.29 - Other chronic pain, M54.5 - Low back pain Referrals General Surgery Referral K43.9 - Ventral hernia without obstruction or gangrene Medications: New meloxicam 15 mg PO DAILY 30 days 30 tabs 2RF prednisone 40 mg (2 x 20 mg) PO DAILY 5 days 10 tabs 0RF Changed From topiramate 50 mg PO DAILY 90 days 90 tabs 2RF To topiramate 100 mg PO DAILY 90 days 90 tabs 2RF Refilled topiramate 50 mg PO DAILY 90 days 90 tabs 2RF pregabalin 150 mg PO QID 90 days 360 caps 0RF Coding Level of Care Code Est Pt Level 4 (45748) Diagnoses Chronic low back pain M54.5; G89.29 Ventral hernia K43.9
[2023-07-24 12:20] VITALS: BP 134/78; PULSE 58; O2SAT 100; BMI 34.4
== END ==
PROVIDERS: PCP Family Medicine; Visit Provider Family Medicine
DX: M54.50 Low back pain, unspecified (principal); G89.29 Other chronic pain; K43.9 Ventral hernia without obstruction or gangrene
CPT/HCPCS: 99214

== ENCOUNTER 2023-08-07 10:46 | Outpatient (AMB) | payer OTHER, SELFPAY ==
--- NOTE | 2023-08-07 10:49 | AM.OFFWIN_ITS ---
Intake Vital Signs 08/07/23 10:50 Height 6 ft Weight 251 lb BMI 34.0 BP 118/64 Blood Pressure Location Lt brachial Position Sitting Pulse 69 Pulse Source Pulse Oximeter Pulse Oximetry (%) 98 Oxygen Delivery Method Room Air Intake Visit Reasons: Cough and congestion for 3 weeks Patient Tobacco Use Status: Current everyday Tobacco user Allergies latex Allergy (Intermediate, Verified 08/07/23 10:51) immediate contact dermatitis zolpidem Allergy (Verified 08/07/23 10:51) Seizure Medication List - Last Reconciled 08/07/23 by Paola Salinas, [facility]- meloxicam 15 mg PO DAILY 30 days pregabalin 150 mg PO QID 90 days topiramate 100 mg PO DAILY 90 days HPI HPI Comments History of Present Illness Details Here today w/ c/o cough Sx started a few weeks ago At first developed a prod cough Then became ill w/ same thing Along w/ child He now has a runny nose in addition to the cough Home COVID test negative Exposed to COVID at work ([employer]) At home tx cough drops w/o relief. Denies fever, sore throat, ear pain, headache or facial pressure. + tobacco use Denies asthma/COPD. [facility] Medical History Diastasis recti COVID-19 vaccine administered Incisional hernia Tear of left rotator cuff Internal derangement of left shoulder Obesity Seizure disorder Chronic low back pain Insomnia Erectile dysfunction Depression Anxiety Surgical History History of rotator cuff surgery H/O colonoscopy History of hernia repair History of back surgery Family History Mother Lung cancer Social History Housing: Condominium Are you a primary med care manager to a significant other at home: No Do you presently have visiting nurse or other home services: No Alcohol intake: never Comment: medicated, see MAR Patient Tobacco Use Status: Current everyday Tobacco user Tobacco use type: Cigarette Cigarette Packs Per Day: 0.5 Cigarettes Per Day: 10 Years Smoked: 20 e-Cigarette/Vaping Use: Never Used Second Hand Smoke Exposure: Yes Substance Use Type: Marijuana service: No Current occupational status: employed 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 (2) Tobacco use disorder: Code(s): F17.200 - Nicotine dependence, unspecified, uncomplicated Plan . Medications: New albuterol sulfate 90 mcg/actuation 2 puffs inhalation Q4-6H 30 days PRN 8.5 grams 0RF shortness of breath or wheezing azithromycin For 250 mg dose pack: take 500 mg today (day 1), then 250 mg for 4 days (days 2-5) PO 5 days 6 tabs 0RF Patient Instructions: Smoking cessation encouraged. Treat with antibiotics and Kathrin. Advised that if his symptoms do not improve in 10 days or worsen that he should return to the clinic for re-evaluation. Coding Level of Care Code Est Pt Level 3 (63003) Diagnoses Bronchitis J40 Tobacco use disorder F17.200
[2023-08-07 10:50] VITALS: BP 118/64; PULSE 69; O2SAT 98; BMI 34.0
== END 2023-08-07 11:51 | disposition home or self-care (01) ==
PROVIDERS: PCP Family Medicine; Visit Provider Nurse Practitioner Family
DX: J40 Bronchitis, not specified as acute or chronic (principal); F17.200 Nicotine dependence, unspecified, uncomplicated
CPT/HCPCS: 99213

== ENCOUNTER 2023-09-03 11:47 | Outpatient (AMB) | payer OTHER, SELFPAY ==
[2023-09-03 12:32] VITALS: BP 124/70; PULSE 62; RESP 15; TEMP 36.1; O2SAT 98; BMI 34.3
--- NOTE | 2023-09-03 12:32 | A.OFFPC_ITS ---
Vital Signs 09/03/23 12:32 Height 6 ft Weight 253 lb BMI 34.3 BP 124/70 Blood Pressure Location Rt brachial Position Sitting Respiration 15 Pulse 62 Pulse Source Pulse Oximeter Temp 97 F Temp Source Temporal Artery Scan Pulse Oximetry (%) 98 Oxygen Delivery Method Room Air Intake Visit Reasons: f/u back pain Intake Note: Patient would like to go over CT scan. Drum Stenciler Required: No Accompanied by: Self / Same As Patient Allergies latex Allergy (Intermediate, Verified 09/03/23 12:36) immediate contact dermatitis zolpidem Allergy (Verified 09/03/23 12:36) Seizure Tobacco use date assessed: 04/24/23 Dental Screening Dental Screen Date: 04/24/23 HPI f/u back pain HPI Details 47 y/o male presents to f/u back pain. Pt notes meloxicam has been helping. Incidental finding of an adrenal mass - 1 nodule on L and 2 nodules on R. [facility] Medical History Diastasis recti COVID-19 vaccine administered Tear of left rotator cuff Internal derangement of left shoulder Obesity Seizure disorder Chronic low back pain Insomnia Erectile dysfunction Depression Anxiety Surgical History Incisional hernia History of rotator cuff surgery H/O colonoscopy History of hernia repair History of back surgery Family History Mother Lung cancer Social History Housing: Condominium Are you a primary director of healthcare systems to a significant other at home: No Do you presently have visiting nurse or other home services: No Alcohol intake: never Comment: medicated, see MAR Patient Tobacco Use Status: Current everyday Tobacco user Tobacco use type: Cigarette Cigarette Packs Per Day: 0.5 Cigarettes Per Day: 10 Years Smoked: 20 e-Cigarette/Vaping Use: Never Used Second Hand Smoke Exposure: Yes Substance Use Type: Marijuana service: No Current occupational status: employed 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 Bryan Lombardi, Alanna Schreiber, Noman Andrade and colleagues, with an educational christina from [employer]. Review of Systems Const Denies chills, Denies fatigue, Denies fever(s), Denies headache(s) and Denies weakness ENT Denies dizziness and Denies headache(s) Card Denies dyspnea Resp Denies cough, Denies dyspnea, Denies wheezing and Denies other (shortness of breath) Musc Denies numbness and Denies tingling Neuro Denies dizziness, Denies headache(s), Denies numbness, Denies tingling and Denies weakness Psych Denies anxiety and Denies depression Endo Denies fatigue Aller/Immun Denies wheezing Physical exam (Primary Care) Vital Signs: Last Vital Signs Temp 97 F 09/03/23 12:32 Pulse 62 09/03/23 12:32 Resp 15 09/03/23 12:32 BP 124/70 09/03/23 12:32 Pulse Ox 98 09/03/23 12:32 Oxygen Delivery Method Room Air 09/03/23 12:32 BMI result Body Mass Index 34.3 Tobacco/Smoking Status: Tobacco use Status Tobacco use date assessed 04/24/23 09/03/23 12:37 Patient Tobacco Use Status Current everyday Tobacco 09/03/23 12:37 Tobacco use type Cigarette 09/03/23 12:37 e-Cigarette/Vaping Use Never Used 09/03/23 12:37 Thrive Assessment: Date of Thrive Assessment Date Thrive assessed 04/24/23 09/03/23 12:37 Const General: well developed; No acute distress Nutritional Appearance: well nourished Orientation/consciousness: patient oriented x3 [facility] Head: Yes normocephalic and Yes atraumatic Eyes General: appearance normal, both eyes and all related structures Pupils: Equal, round and reactive pupils present EOM: EOMs intact bilaterally Resp Effort & Inspection: normal respiratory effort Neuro General: patient oriented x3 and gait normal Cranial nerves: Yes Equal, round and reactive pupils present Psych Affect: normal affect Assessment and Plan Assessment & Plan (1) Back pain: Code(s): M54.9 - Dorsalgia, unspecified Plan: Back?pain?improved?with?meloxicam. Has?not?had?x- rays?done?or?gotten?started?with?physical?therapy?but?plans?to?do?so. Continue?meloxicam and?follow?through?on?the?above?imaging?and?interventions. (2) Adrenal mass: Code(s): E27.8 - Other specified disorders of adrenal gland Plan: Incidental?renal?nodules?seen?on?CT?abdomen?pelvis?which?was?ordered?to?evaluate ?ventral?hernia. One?nodule?on?left?and?2?nodules?on?right Check?labs CT?adrenal?protocol?ordered Will?follow-up?with?patient?after?results?are?available Orders: Orders Metanephrines, Plasma Today E27.8 - Other specified disorders of adrenal gland CT adrenal wo/w IV con Today E27.8 - Other specified disorders of adrenal gland Comprehensive Met. Panel Today E27.8 - Other specified disorders of adrenal gland Complete Blood Count Auto Diff Today E27.8 - Other specified disorders of adre nal gland, Z00.00 - Encounter for general adult medical examination without abnormal findings Coding Level of Care Code Est Pt Level 4 (29044) Diagnoses Back pain M54.9 Adrenal mass E27.8
== END 2023-09-03 13:39 | disposition home or self-care (01) ==
PROVIDERS: PCP Family Medicine; Visit Provider Family Medicine
DX: M54.9 Dorsalgia, unspecified (principal); E27.8 Other specified disorders of adrenal gland
CPT/HCPCS: 99214

== ENCOUNTER 2023-09-03 13:35 | Outpatient (REF) | payer OTHER, SELFPAY ==
[2023-09-03 17:52] LABS: Alanine Aminotransferase 12 U/L (0-40); Albumin Level 4.4 g/dL (3.5-5.0); Alkaline Phosphatase 49 U/L (39-117); Anion Gap 11 (12-20); Aspartate Amino Transferase 14 U/L (5-37); Bilirubin Total 0.4 mg/dL (0.0-1.0); Blood Urea Nitrogen 22 mg/dL (9-16); Calcium 9.6 mg/dL (8.4-10.2); Carbon Dioxide 24 mmol/L (22-29); Chloride 112 mmol/L (96-108); Cholesterol 174 mg/dL (<200); Estimated Glomerular Filt Rate > 60; Glucose Fasting 74 mg/dL (60-99); Glucose Random 74 mg/dL (60-115); HDL Cholesterol 31 mg/dL (>40); LDL Cholesterol Calculated 115 mg/dL (<100); Potassium 4.2 mmol/L (3.3-5.1); Sodium 143 mmol/L (135-145); Total Protein 6.9 g/dL (6.5-8.0); Triglycerides 140 mg/dL (<150)
== END 2023-09-03 13:36 | disposition home or self-care (01) ==
LOC: HO.WFDLDS 13:35
PROVIDERS: Visit Provider Family Medicine
DX: Z00.00 Encounter for general adult medical examination without abnormal findings (principal); E78.5 Hyperlipidemia, unspecified; E78.6 Lipoprotein deficiency; E27.8 Other specified disorders of adrenal gland
CPT/HCPCS: 36415; 80053; 80061

== ENCOUNTER 2023-09-06 14:17 | Outpatient (REF) | payer OTHER, SELFPAY ==
[2023-09-06 14:41] LABS: MANUAL DIFF FLAG NO
[2023-09-06 14:52] LABS: Basophils Absolute Auto 0.1 X10*3/uL (0.0-0.2); Basophils Percent Auto 0.9 % (0-2); Eosinophils Absolute Auto 0.2 X10*3/uL (0.0-0.4); Eosinophils Percent Auto 2.1 % (0-4); Hematocrit 45.4 % (42.0-52.0); Hemoglobin 15.1 g/dl (14.0-18.0); Imm Gran Abs Auto 0.01 X10*3/uL (0.00-0.03); Imm Gran Pct Auto 0.1 % (0.0-0.4); Lymphocytes Absolute Auto 3.5 X10*3/uL (1.2-4.9); Lymphocytes Percent Auto 42.3 % (20-40); Mean Corpuscular HGB Conc 33.3 g/dl (31.0-36.0); Mean Corpuscular Hemoglobin 31.3 pg (27.0-33.0); Monocytes Absolute Auto 0.6 X10*3/uL (0.1-1.2); Neutrophils Absolute Auto 3.9 x10*3/uL (2.0-8.3); Neutrophils Percent Auto 47.6 % (45-73); Red Blood Count 4.83 X10*6/uL (4.60-5.80); Red Cell Distribution Width 13.6 % (11.0-16.0); White Blood Count 8.2 X10*3/uL (4.8-10.8)
[2023-09-06 15:14] LABS: Mean Platelet Volume 12.1 fL (9.4-12.4); Platelet Count 96 X10*3/uL (160-400)
[2023-09-11 21:44] LABS: Metanephrine, Free 32 pg/mL (<=57); Normetanephrines, Free 66 pg/mL (<=148); Total Metanephrine, Free 98 pg/mL (<=205)
== END 2023-09-06 14:18 | disposition home or self-care (01) ==
LOC: HO.LAB 14:17
PROVIDERS: PCP Family Medicine; Visit Provider Family Medicine
DX: Z00.00 Encounter for general adult medical examination without abnormal findings (principal); E27.8 Other specified disorders of adrenal gland
CPT/HCPCS: 36415; 83835; 85025

== ENCOUNTER 2023-10-18 12:26 | Outpatient (AMB) | payer OTHER, SELFPAY ==
--- NOTE | 2023-10-18 12:58 | AM.OFFWIN_ITS ---
Intake Vital Signs 10/18/23 12:59 Height 6 ft Weight 251 lb BMI 34.0 BP 120/78 Blood Pressure Location Lt brachial Position Sitting Pulse 50 Pulse Source Pulse Oximeter Pulse Oximetry (%) 98 Oxygen Delivery Method Room Air Intake Visit Reasons: EP toe nails turning blue, tingling, no numbness. Intake Note: Patient here for bilat big toe nails are looking bruised, no known injuries. Patient Tobacco Use Status: Current everyday Tobacco user Allergies latex Allergy (Intermediate, Verified 10/18/23 12:59) immediate contact dermatitis zolpidem Allergy (Verified 10/18/23 12:59) Seizure Do you need a note to return to daycare/school/sports/work: No HPI EP toe nails turning blue, tingling, no numbness. HPI Details This note is constructed using voice recognition software. While every effort has been made to ensure accuracy, women's ministry director errors may have been included. The patient is a 47 year old male who presents to the clinic today with concern for bruising to toenails on 1st toes bilaterally without known injury. He also reports that the bottom of his feet are cold all the time they become pale and blue in color, and then moderately painful. He is currently a smoker, however he is actively looking to quit. He reports the color change in the bottom of his feet is not present when his feet are warm. He denies any lesions to the area. The discoloration of his toenails he noticed over the past couple of weeks, and when he coupled it with the discoloration in the bottom of his feet he was concerned when he started looking up on [employer] that he could have had some sort of a blood clot. [facility] Medical History Diastasis recti COVID-19 vaccine administered Tear of left rotator cuff Internal derangement of left shoulder Obesity Seizure disorder Chronic low back pain Insomnia Erectile dysfunction Depression Anxiety Surgical History Incisional hernia History of rotator cuff surgery H/O colonoscopy History of hernia repair History of back surgery Family History Mother Lung cancer Social History Housing: [facility] Are you a primary respiratory care technician to a significant other at home: No Do you presently have visiting nurse or other home services: No Alcohol intake: never Comment: medicated, see MAR Patient Tobacco Use Status: Current everyday Tobacco user Tobacco use type: Cigarette Cigarette Packs Per Day: 0.5 Cigarettes Per Day: 10 Years Smoked: 20 e-Cigarette/Vaping Use: Never Used Second Hand Smoke Exposure: Yes Substance Use Type: Marijuana service: No Current occupational status: employed 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 Current occupational exposures/hazards: No Cognitive needs: No Hearing needs: Yes Vision needs: Yes Review of Systems Const All systems reviewed & are unremarkable except as noted in HPI and below Physical Exam Vital Signs: Last Vital Signs Pulse 50 10/18/23 12:59 BP 120/78 10/18/23 12:59 Pulse Ox 98 10/18/23 12:59 Oxygen Delivery Method Room Air 10/18/23 12:59 BMI result Body Mass Index 34.0 Const General: cooperative, healthy appearing, comfortable, no acute distress and alert Orientation/consciousness: patient oriented x3 Limitations: no limitations Resp Effort & Inspection: normal respiratory effort and able to speak in complete sentences Auscultation: clear to auscultation bilaterally Cardio Jugular venous distension: no JVD Palpation: normal PMI Rate: regular rate Heart sounds: S1 normal heart sound present, S2 normal heart sound present, no click, no gallops, no murmurs and no rubs Skin Other: Onychomycosis present to bilateral great toenails involving approximately 50% with thickening and discoloration. General skin exam: no rashes or lesions noted, elasticity normal and turgor normal Neuro General: patient oriented x3 Extrem Other: Bottoms of feet cool on examination with white and blue discoloration. Actively warmed feet, with turn of coloration, and pain discontinuation. General: Yes normal to inspection, Yes full ROM, Yes capillary refill normal and Yes normal exam except as noted Psych Appearance: grossly normal Mental Status: mental status grossly normal Speech and movement: Normal speech and movement present Affect: normal affect Assessment & Plan Assessment & Plan (1) Onychomycosis: Code(s): B35.1 - Tinea unguium Plan: No previous treatment attempted, advised patient to try [id number] ointment or lacquer for symptomatic management. Advised patient to follow up with PCP with worsening or failure to resolve with treatment. (2) Raynauds disease: Code(s): I73.00 - Raynaud's syndrome without gangrene Qualifiers: Raynaud?s-associated gangrene presence: without gangrene Qualified Code(s): I73.00 - Raynaud's syndrome without gangrene Plan: Reassuring physical examination, especially in resolution of symptoms with adequate temperature supply. Advised smoking cessation. Provided patient printed education from up-to-date for foods to avoid and advised temperature control for symptomatic management. Follow up with PCP as needed. Plan See above for full details and plan. Coding Level of Care Code Est Pt Level 4 (08988) Diagnoses Onychomycosis B35.1 Raynaud's disease without gangrene I73.00 Raynaud?s-associated gangrene presence: without gangrene Time Spent (min) 25
[2023-10-18 12:59] VITALS: BP 120/78; PULSE 50; O2SAT 98; BMI 34.0
== END 2023-10-18 13:44 | disposition home or self-care (01) ==
PROVIDERS: PCP Family Medicine; Visit Provider Registered Nurse
DX: B35.1 Tinea unguium (principal); I73.00 Raynaud's syndrome without gangrene
CPT/HCPCS: 99214

== ENCOUNTER 2023-10-25 10:09 | Outpatient (REF) | payer OTHER, SELFPAY ==
--- NOTE | ~2023-10-25 | CT_ITS ---
EXAMINATION: CT adrenal without and with IV contrast.. CLINICAL INFORMATION: Adrenal mass. COMPARISON: CT dated July 21, 2020. TECHNIQUE: Multidetector volumetric images were obtained from the superior aspect of the liver through the iliac crests without and following the IV contrast administration. Total of 85 cc Omnipaque 350 strength Without reported immediate complications. Oral contrast: No. CT examination performed using dose optimization technique as appropriate with variously included following: Automated exposure control. Adjustment of MA has and/or KV according to patient size (this includes techniques or standardized protocols for targeted exams where dose is matched to indication/reason for the exam. Use of interactive reconstruction technique. DLP: 794 mg/sq cm. FINDINGS: Right adrenal gland: 2.7 cm low-density nodule measures -4 Hounsfield units, noncontrast phase.. Left adrenal gland: 2.1 cm low-density nodule measures -6.5 Hounsfield units, noncontrast phase. Liver measures 20 cm. Questionable 5 mm/meningioma in the periphery of the dome right hepatic lobe. No focal mass. Portal vein is patent. Intrahepatic portion of the IVC patent. No intrahepatic biliary ductal dilatation. No pericholecystic fluid collection or gallbladder wall thickening. Common bile duct measures 3 mm. No focal pancreatic mass or peripancreatic fluid collections. No main pancreatic ductal dilatation. Punctate calcification in the head of the pancreas. Spleen measures 12 cm. No focal mass. Right kidney has a low position and the retroperitoneum at the level of the iliac crest with anterior lateral position of the renal hilum. No hydronephrosis. No gross renal mass. Normal urinary excretion. Left kidney demonstrates normal anatomic position without gross renal mass or hydronephrosis. Parapelvic cyst. Abdominal aorta demonstrates no aneurysm or dissection. No ascites. No intestinal obstruction pattern. Multiple abdominal wall defect in the epigastric region with herniated omental fat. Diastases abdominal rectus muscles amputation of the intra-abdominal organs in the periumbilical region. Status post posterior fusion L5-S1 and a grade 1 anterolisthesis L5-S1. Multilevel lower thoracic spondylosis. CT/CT adrenal wo/w IV con IMPRESSION: Lipid- rich adenoma, bilaterally. Hepatomegaly, mild. Fat-containing hernias, epigastric. Electronically signed by: Brock Espinoza MD 12/19/2023 12:38 PM EDT
[2023-10-25] MEDS: iohexoL 350 MG/ML 100 ML INFUS..BTL 85 ML IV (11:24)
== END 2023-10-25 10:10 | disposition home or self-care (01) ==
LOC: HO.CT 10:09
PROVIDERS: PCP Family Medicine; Visit Provider Family Medicine
DX: E27.8 Other specified disorders of adrenal gland (principal)
CPT/HCPCS: 74170; Q9967

== ENCOUNTER → 2023-10-25 10:14 | Outpatient (BNV) | payer OTHER, SELFPAY | PROVIDERS: PCP Family Medicine; Visit Provider Radiology Diagnostic Radiology | DX: E27.8 Other specified disorders of adrenal gland (principal) | CPT/HCPCS: 74170 ==

== ENCOUNTER 2023-12-03 11:49 | Outpatient (AMB) | payer OTHER, SELFPAY ==
--- NOTE | 2023-12-03 12:18 | MHC.PC.OV ---
Vital Signs 12/03/23 12:20 Height 6 ft Weight 248 lb 2 oz BMI 33.6 BP 118/71 Blood Pressure Location Lt brachial Position Sitting Respiration 16 Pulse 63 Pulse Source Pulse Oximeter Temp 97.9 F Temp Source Temporal Artery Scan Pulse Oximetry (%) 99 Oxygen Delivery Method Room Air Intake Visit Reasons: bi adrenal nodules, low back pain, ventral hernia Intake Note: follow up for ct scan Allergies latex Allergy (Intermediate, Verified 12/03/23 12:19) immediate contact dermatitis zolpidem Allergy (Verified 12/03/23 12:19) Seizure Tobacco use date assessed: 04/24/23 Dental Screening Dental Screen Date: 04/24/23 HPI bi adrenal nodules, low back pain, ventral hernia HPI Details 47 y/o male presents to f/u bilateral adrenal nodules, low back pain and ventral hernia. Had ordered labs. CT adrenal ordered. Meloxicam had been helping with back pain and had agreed to get x-rays/start physical therapy. I do not see any x-rays today/work-up today. Pt notes he had seen a specialist for his ventral hernia but pt states they had told him this was going to be an extensive surgery that would take up to a year. He questions whether or not to do this surgery due to how long this would take. HPI Comments History of Present Illness Details Documentation assistance for Claude Kelsey MD, was provided by Baljinder Caban, Board Certified Behavioral Analyst on 12/03/2023 at 1:22 PM EST. I, Dr. Kelsey, have read, observed, and verified documentation. [facility] Medical History Diastasis recti COVID-19 vaccine administered Tear of left rotator cuff Internal derangement of left shoulder Obesity Seizure disorder Chronic low back pain Insomnia Erectile dysfunction Depression Anxiety Surgical History Incisional hernia History of rotator cuff surgery H/O colonoscopy History of hernia repair History of back surgery Family History Mother Lung cancer Social History Housing: Condominium Are you a primary director long term care to a significant other at home: No Do you presently have visiting nurse or other home services: No Alcohol intake: never Comment: medicated, see MAR Patient Tobacco Use Status: Current everyday Tobacco user Tobacco use type: Cigarette Cigarette Packs Per Day: 0.5 Cigarettes Per Day: 10 Years Smoked: 20 e-Cigarette/Vaping Use: Never Used Second Hand Smoke Exposure: Yes Substance Use Type: Marijuana service: No Current occupational status: employed 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 Bryan Lombardi, Alanna Schreiber, Noman Andrade and colleagues, with an educational christina from [employer]. Physical exam (Primary Care) Vital Signs: Last Vital Signs Temp 97.9 F 12/03/23 12:20 Pulse 63 12/03/23 12:20 Resp 16 12/03/23 12:20 BP 118/71 12/03/23 12:20 Pulse Ox 99 12/03/23 12:20 Oxygen Delivery Method Room Air 12/03/23 12:20 BMI result Body Mass Index 33.6 Tobacco/Smoking Status: Tobacco use Status Tobacco use date assessed 04/24/23 12/03/23 12:23 Patient Tobacco Use Status Current everyday Tobacco 12/03/23 12:23 Tobacco use type Cigarette 12/03/23 12:23 e-Cigarette/Vaping Use Never Used 12/03/23 12:23 Thrive Assessment: Date of Thrive Assessment Date Thrive assessed 04/24/23 12/03/23 12:23 Coding Level of Care Code Est Pt Level 4 (90748) Diagnoses Ventral hernia K43.9 Adrenal mass E27.8 Back pain M54.9 Assessment & Plan Assessment & Plan (1) Ventral hernia: Code(s): K43.9 - Ventral hernia without obstruction or gangrene Category: Surgical Plan: Patient?had?been?referred?to?surgery?and?is?considering?this. Follow-up?with?your?surgeon?as?recommended (2) Adrenal mass: Code(s): E27.8 - Other specified disorders of adrenal gland Category: Medical Plan: Lab?work?unremarkable?so?far CT?with?adrenal?protocol?is?acquired?but?ready?is?still?pending. I?requested?having?this?expedited. Patient?notes?that?he?has?now?seen?prior?records?showing?this?has?been?seen?on?prior?imaging?in?the?past. Will?follow-up?with?patient?by?telemedicine?this?week?or?next (3) Back pain: Code(s): M54.9 - Dorsalgia, unspecified Category: Medical Plan: Patient?had?wanted?to?deal?with?ventral?hernia?prior?to?starting?physical?therapy?and?getting?x-rays. He?is?contemplating?surgery?for?his?hernia He?agrees?to?go?get?his?x-rays?done Advised?he?start?physical?therapy?as?his?surgeon?has reassured?him?it?is?safe?for?him?to?do?so?without?causing?strangulation?of?bowel.
[2023-12-03 12:20] VITALS: BP 118/71; PULSE 63; RESP 16; TEMP 36.6; O2SAT 99; BMI 33.6
== END 2023-12-03 13:22 | disposition home or self-care (01) ==
PROVIDERS: PCP Family Medicine; Visit Provider Family Medicine
DX: K43.9 Ventral hernia without obstruction or gangrene (principal); E27.8 Other specified disorders of adrenal gland; M54.9 Dorsalgia, unspecified

== ENCOUNTER → 2023-12-03 11:49 | Outpatient (BNVA) | payer OTHER, SELFPAY | PROVIDERS: PCP Family Medicine; Visit Provider Family Medicine | DX: K43.9 Ventral hernia without obstruction or gangrene (principal); E27.8 Other specified disorders of adrenal gland; M54.9 Dorsalgia, unspecified | CPT/HCPCS: 99212 ==

== ENCOUNTER 2023-12-31 10:22 | Outpatient (REF) | payer OTHER, SELFPAY ==
--- NOTE | ~2023-12-31 | XR_ITS ---
EXAMINATION: XR LUMBOSACRAL SPINE CLINICAL INFORMATION: Low back pain. COMPARISON: CT abdomen/pelvis 05/28/2023. TECHNIQUE: Three views of the lumbosacral spine. FINDINGS: Posterior fusion hardware with transpedicular screws at L5-S1. No evidence of hardware fracture. No abnormal perihardware lucency. Unchanged anterolisthesis of L5 on S1. No acute compression deformity or interval subluxation. Stable intervertebral disc height loss with advanced facet arthropathy and neural foraminal encroachment at L5-S1. No significant paraspinal soft tissue abnormalities. XR/XR lumbar spine 2-3V IMPRESSION: 1. Posterior fusion hardware at L5-S1 without evidence of hardware failure. 2. No acute compression deformity or interval subluxation. Electronically signed by: Kiah Solomon MD 12/31/2023 03:39 PM JOHANA
== END 2023-12-31 10:23 | disposition home or self-care (01) ==
LOC: HO.XRAY 10:22
PROVIDERS: PCP Family Medicine; Visit Provider Family Medicine
DX: M54.50 Low back pain, unspecified (principal); G89.29 Other chronic pain
CPT/HCPCS: 72100

== ENCOUNTER → 2024-01-15 14:31 | Outpatient (AMB) | payer OTHER, SELFPAY ==
--- NOTE | 2024-01-15 14:28 | A.OFFPC_ITS ---
Intake Visit Reasons: f/u imaging via telemedicine Allergies latex Allergy (Intermediate, Verified 01/15/24 14:28) immediate contact dermatitis zolpidem Allergy (Verified 01/15/24 14:28) Seizure Tobacco use date assessed: 04/24/23 Dental Screening Dental Screen Date: 04/24/23 HPI f/u imaging via telemedicine HPI Details 48 y/o male presents to review CT adrena ls and x-rays of lumbar spine. Lumbar spine x-ray 12/31/23 shows: 1. Posterior fusion hardware at L5-S1 without evidence of hardware failure. 2. No acute compression deformity or in terval subluxation. Adrenal CT 10/25/23 shows: Lipid- rich adenoma, bilaterally. Hepatomegaly, mild. Fat-containing hernias, epigastric. [facility] Medical History Diastasis recti COVID-19 vaccine administered Tear of left rotator cuff Internal derangement of left shoulder Obesity Seizure disorder Chronic low back pain Insomnia Erectile dysfunction Depression Anxiety Surgical History Incisional hernia History of rotator cuff surgery H/O colonoscopy History of hernia repair History of back surgery Family History Mother Lung cancer Social History Housing: Condominium Are you a primary transitions rn care coordinator to a significant other at home: No Do you presently have visiting nurse or other home services: No Alcohol intake: never Comment: medicated, see MAR Patient Tobacco Use Status: Current everyday Tobacco user Tobacco use type: Cigarette Cigarette Packs Per Day: 0.5 Cigarettes Per Day: 10 Years Smoked: 20 e-Cigarette/Vaping Use: Never Used Second Hand Smoke Exposure: Yes Substance Use Type: Marijuana service: No Current occupational status: employed 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 Bryan Lombardi, Alanna B.W. Noman Schreiber and colleagues, with an educational christina from [employer] Physical exam (Primary Care) Tobacco/Smoking Status: Tobacco use Status Tobacco use date assessed 04/24/23 01/15/24 14:30 Patient Tobacco Use Status Current everyday Tobacco 01/15/24 14:30 Tobacco use type Cigarette 01/15/24 14:30 e-Cigarette/Vaping Use Never Used 01/15/24 14:30 Thrive Assessment: Date of Thrive Assessment Date Thrive assessed 04/24/23 01/15/24 14:30 Telehealth Telehealth Telehealth Platform: Telephone Location of provider rendering services: practice address Location of patient: address on file Patient Identification confirmed using: Name, : Yes Telehealth method: voice only Patient verbally consented to treatment: Yes Patient verbally consented to billing insurance company: Yes Patient informed of any privacy concerns related to visit: Yes Minutes spent on Phone/Video with Pt.: 6 Coding Level of Care Code Tele Est Pt Level 2 (17359) Diagnoses Adrenal mass E27.8 Back pain M54.9 Assessment & Plan Assessment & Plan (1) Adrenal mass: Code(s): E27.8 - Other specified disorders of adrenal gland Category: Medical Plan: Lipid?rich?adrenal?masses?approximately?2?cm?in?bilateral Likely?benign. Will?recheck?six-month?from?prior?study We?discussed?that?if?there?is?no?change?can?discontinue?surveillance. (2) Back pain: Code(s): M54.9 - Dorsalgia, unspecified Category: Medical Plan: Ongoing?back?pain. Start?physical?therapy Orders: Orders PT Evaluation and Treatment Today M54.9 - Dorsalgia, unspecified CT adrenal wo/w IV con 04/24/24 E27.8 - Other specified disorders of adrenal gland
== END ==
LOC: HO.HMCFM 14:31
PROVIDERS: PCP Family Medicine; Visit Provider Family Medicine
DX: E27.8 Other specified disorders of adrenal gland (principal); M54.9 Dorsalgia, unspecified

== ENCOUNTER 2024-10-24 13:05 | Outpatient (AMB) | payer OTHER, SELFPAY ==
--- NOTE | 2024-10-24 13:08 | AM.OFFWIN_ITS ---
Intake Vital Signs 10/24/24 13:09 Height 6 ft Weight 249 lb BMI 33.8 BP 110/64 Blood Pressure Location Rt brachial Position Sitting Pulse 63 Pulse Source Pulse Oximeter Temp 97.9 F Temp Source Oral Pulse Oximetry (%) 98 Oxygen Delivery Method Room Air Intake Visit Reasons: EP-b/l arms & belly poison zewmack Intake Note: pt presents with ?poisin sumac? rash to arms and abdomen Patient Tobacco Use Status: Current everyday Tobacco user Allergies latex Allergy (Intermediate, Verified 10/24/24 13:17) immediate contact dermatitis zolpidem Allergy (Verified 10/24/24 13:17) Seizure Do you need a note to return to daycare/school/sports/work: No HPI HPI Comments History of Present Illness Details History - The patient is a 48-year-old male pres enting with a rash due to poison gina exposure. - The rash has been present for 14 days, affecting the arms, abdomen, and legs. - The patient has been using calamine lo tion and hydrocortisone cream without improvement. - The rash is itchy and has been worseni ng despite treatment. - The patient has a history of using pre dnisone for similar conditions in the past. - The patient was exposed to poison gina while at [place] [employer] two weeks ago. Physical Exam Physical Exam General: Cooperative, healthy appearing, comfortable, no acute distress and well developed Orientation: Patient oriented x3 Limitations: No limitations Head: Normal to inspection Ears: Hearing grossly normal bilaterally Nose: Normal External nose present Face and sinus: Normal facial exam Eyes: Appearance normal, both eyes and all related structures Neck: Normal visual inspection and Yes full ROM Respiratory: Normal respiratory effort and able to speak in complete sentences. Skin: pinpoint, raised erythematous lesions on bilateral UE, LE and chest and abdomen Neuro: Patient oriented x3 [facility] Medical History Diastasis recti COVID-19 vaccine administered Tear of left rotator cuff Internal derangement of left shoulder Obesity Seizure disorder Chronic low back pain Insomnia Erectile dysfunction Depression Anxiety Surgical History Incisional hernia History of rotator cuff surgery H/O colonoscopy History of hernia repair History of back surgery Family History Mother Lung cancer Social History Housing: Condominium Are you a primary direct care staffer to a significant other at home: No Do you presently have visiting nurse or other home services: No Alcohol intake: never Comment: medicated, see MAR Patient Tobacco Use Status: Current everyday Tobacco user Tobacco use type: Cigarette Cigarette Packs Per Day: 0.5 Cigarettes Per Day: 10 Years Smoked: 20 e-Cigarette/Vaping Use: Never Used Second Hand Smoke Exposure: Yes Substance Use Type: Marijuana service: No Current occupational status: employed 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 Current occupational exposures/hazards: No Cognitive needs: No Hearing needs: Yes Vision needs: Yes Review of Systems Const All systems reviewed & are unremarkable except as noted in HPI and below Physical Exam Vital Signs: Last Vital Signs Temp 97.9 F 10/24/24 13:09 Pulse 63 10/24/24 13:09 BP 110/64 10/24/24 13:09 Pulse Ox 98 10/24/24 13:09 Oxygen Delivery Method Room Air 10/24/24 13:09 BMI result Body Mass Index 33.8 Assessment & Plan Assessment & Plan (1) Contact dermatitis: Code(s): L25.9 - Unspecified contact dermatitis, unspecified cause Qualifiers: Contact dermatitis type: allergic Contact dermatitis trigger: non-food plants Qualified Code(s): L23.7 - Allergic contact dermatitis due to plants, except food Plan: Plan Patient was informed and verbally consented to the use of an ambient scribe for clinic note documentation during this visit. 1. Poison Gina Dermatitis - Initiate a 12-day prednisone taper starting at 40 mg for three days, followed by 30 mg for three days, 20 mg for three days, and 10 mg for three days. - Advise the use of a stronger steroid cream for persistent spots after tapering off prednisone. - Recommend washing clothes and bed linens with Tecnu to remove urushiol oils and prevent re-exposure. Medications: New prednisone see taper instructions; 40 mg Daily x3 days, 30 mg daily x3 days, 20 mg daily x3 days, 10 mg daily x3 days 10 mg PO DIRECTED 30 tabs 0RF Coding Level of Care Code Est Pt Level 3 (39377) Diagnoses Allergic contact dermatitis due to plants, except food L23.7 Contact dermatitis type: allergic Contact dermatitis trigger: non-food plants
[2024-10-24 13:09] VITALS: BP 110/64; PULSE 63; TEMP 36.6; O2SAT 98; BMI 33.8
--- OUTSIDE RECORDS SUMMARY | 2024-10-24 13:21 | XMS_ITS ---
Author Name [facility] Organization Unknown Allergies Allergen Reaction Severity Comment Documented Date Source Statu s LATEX 01/02/2015 CTTHNEMG active METHADONE 12/10/2014 CTTHNEMG active LAMOTRIGINE CTTHNEMG Problems Problem Status Onset Date Problem Type Date of Resoluti on Source Diverticulitis active 2023-06-22 ProblemAct CTT HNEMG Smoking greater than 30 pack years active 2023-06-22 ProblemAct CTTHNEMG Recurrent incisional hernia active 2023-06-22 ProblemAct CTTHNEMG
--- OUTSIDE RECORDS SUMMARY | 2024-10-24 13:21 | XMS_ITS | Clinical Summary ---
Author Organization [facility] Address [address] [place] [address] Care Team Providers Care Tank Systems Maintainer Name Role Phone Claude Kelsey MD Primary Care Provider Allergies Active Allergy Reactions Criticality Noted Date Comments Lamotrigine 12/10/2014 Latex 01/02/2015 Methadone 12/10/2014 Medications Medication Sig Dispensed Refills Start Date End Date Status pregabalin (LYRICA) capsule 150 mg 0 06/19/2023 Active topiramate (TOPAMAX) 100 MG tablet Take 1 tablet (100 mg total) by mouth 2 (two) times a day. 0 09/13/2018 Active Active Problems Problem Noted Date Diagnosed Date Recurrent incisional hernia, > 10cm, incarcerate d 06/22/2023 Smoking greater than 30 pack years 06/22/2023 Diverticulitis s/p partial c olectomy (open, emergent, no colostomy) [place] 06/22/2023 Social History Tobacco Use Types Packs/Day Years Used Date Smoking Tobacco: Never Assessed Sex and Gender Information Value Date Recorded Sex Assigned at Male 06/20/2023 12:23 PM EDT Gender Identity Not on file Sexual Orientation Not on file Job Start Date Occupation Industry Not on file Not on file Not on file Last Filed Vital Signs Vital Sign Reading Time Taken Comments Blood Pressure 128/84 06/20/2023 12:55 PM EDT Pulse 65 06/20/2023 12:55 PM EDT Temperature - - Respiratory Rate - - Oxygen Saturation 98% 06/20/2023 12: 55 PM EDT Inhaled Oxygen Concentration - - Weight 115.3 kg (254 lb 3.2 oz) 024 12:55 PM EDT Height 182.9 cm (6') 06/20/2023 12:55 PM EDT Body Mass Index 34.48 06/20/2023 12:55 PM EDT Plan of Treatment Health Maintenance Due Date Last Done Comments Hepatitis B Vaccines (1 of 3 - 3-dose series) 1976 Hepatitis C Screening 1976 COVID-19 Vaccine (#1) 06/04/1977 Depression Screening 1988 BMI Counseling 1994 Preventative Health Evaluation 1994 Colon Cancer Screening (Colonoscopy) 2021 Influenza Vaccine (#1) 2024 12/05/2017 DTap / Tdap / Td (2 - Td or Tdap) 03/18/2028 019 Pneumococcal Vaccine Aged Out No long er eligible based on patient's age to complete this topic RSV Ped < 20 months Aged Out No longe r eligible based on patient's age to complete this topic Care Teams Tank Systems Maintainer Relationship Specialty Start Date End Date Claude Kelsey MD [address] [place] [address] PCP - General Family Medicine 12/11/18
== END 2024-10-24 13:34 | disposition home or self-care (01) ==
PROVIDERS: PCP Family Medicine; Visit Provider Physician Assistant
DX: L23.7 Allergic contact dermatitis due to plants, except food (principal)

== ENCOUNTER → 2024-10-24 13:05 | Outpatient (BNVA) | payer OTHER, SELFPAY | PROVIDERS: PCP Family Medicine; Visit Provider Physician Assistant | DX: L23.7 Allergic contact dermatitis due to plants, except food (principal) | CPT/HCPCS: 99212 ==

== ENCOUNTER 2025-02-06 09:43 | Outpatient (AMB) | payer OTHER, SELFPAY ==
--- NOTE | 2025-02-06 09:50 | A.OFFVIS_ITS ---
Vital Signs 02/06/25 09:59 Height 6 ft Weight 245 lb BMI 33.2 Handedness Right Intake Visit Reasons: New Pt - left elbow pain Intake Note: Bryan is a 49 year old right hand dominant male who presents today as a new patient for a evaluation of his left elbow pain. Patient reports ongoing pain since the 11 of January. Patient reports he hurt his arm when he was pulling a pot at work or it could be related to his shoulder that was operated on LT RTC REPAIR 06/30/2020. Patient states that he notices some tingling going down his forearm and to his finger tips. He has tried cold and warm compresses, Tylenol and Meloxicam that was prescribed by his PCP with no relief. Allergies latex Allergy (Intermediate, Verified 02/06/25 09:58) immediate contact dermatitis zolpidem Allergy (Verified 02/06/25 09:58) Seizure HPI Comments Details: History of Present Illness The patient is a 49 year old male presenting with left elbow pain that started approximately one month ago on January 10. He believes the issue may be work- related, as he noticed the pain after pulling a heavy item off a stove. He is right-hand dominant. The pain, which has been progressively worsening, radiates down into his hand and is associated with tingling in all fingers, which at times causes a sensation of tightness around his ring. Symptoms are exacerbated by touching, bending, or lying on the elbow, and he has experienced significant assistance representative weakness, making it difficult to hold objects. He attempted self-treatment with ice and heat without relief. His past medical history is notable for left shoulder rotator cuff repair performed by Dr. Cerda He also reports feeling a deep, knot-like sensation in his neck and shoulder area. He takes meloxicam 15 mg once daily as prescribed by his primary care provider for general purposes, not specifically for the elbow pain. however, this has not provided any relief. Pain Description - Onset and Timing: The pain began about a month ago, on January 10, and has been getting progressively worse. - Location: The primary location of the pain is the left elbow. - Radiation: The pain radiates down into the hand. - Quality and Character: The pain is associated with tingling in all fingers. - Exacerbating Factors: The pain is worsened by touching the elbow, bending the elbow, and lying on the elbow. - Interference with Function: The condition causes weakness and an inability to assistance representative objects. [facility] Medical History Diastasis recti COVID-19 vaccine administered Tear of left rotator cuff Internal derangement of left shoulder Obesity Seizure disorder Chronic low back pain Insomnia Erectile dysfunction Depression Anxiety Surgical History Incisional hernia History of rotator cuff surgery H/O colonoscopy History of hernia repair History of back surgery Family History Mother Lung cancer Social History [facility] Are you a primary landcare facilitator to a significant other at home: No Do you presently have visiting nurse or other home services: No Alcohol intake: never Comment: medicated, see MAR Patient Tobacco Use Status: Current everyday Tobacco user Tobacco use type: Cigarette Cigarette Packs Per Day: 0.5 Cigarettes Per Day: 10 Years Smoked: 20 e-Cigarette/Vaping Use: Never Used Second Hand Smoke Exposure: Yes Substance Use Type: Marijuana service: No Current occupational status: employed 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 - Neurological: Reports pain radiating into the left hand, tingling in all fingers of the left hand, and assistance representative weakness. Const All systems reviewed & are unremarkable except as noted in HPI and below Physical Exam Vital Signs: BMI result Body Mass Index 33.2 Extrem Other: Left elbow: Normal to inspection. No ecchymosis, erythema, or edema. No tenderness to palpation over the olecranon. Tenderness to palpation over the lateral epicondyle. Pain along the lateral epicondyle with resisted wrist extension. Positive Tinel's at the cubital tunnel. NVI. Assessment & Plan Assessment & Plan (1) Lateral epicondylitis, left elbow: Code(s): M77.12 - Lateral epicondylitis, left elbow Category: Medical (2) Cubital tunnel syndrome on left: Code(s): G56.22 - Lesion of ulnar nerve, left upper limb Category: Medical Plan 1. Left cubital tunnel G56.22 The patient's presentation of left elbow pain with radiation, tingling, and weakness is suspicious for ulnar nerve irritation, consistent with cubital tunnel syndrome, although some mild lateral epicondylitis is also noted. A nerve conduction study will be ordered to confirm the diagnosis and determine nerve compression. Further management will be guided by the results of this study. Follow up will be after the EMG study, sooner if needed. X-rays of the left elbow which were obtained while in the office today and were reviewed by me, Tahmina Valente PA-C, revealed degenerative changes. No acute fracture or dislocation. Patient was informed and verbally consented to the use of an ambient scribe for clinic note documentation during this visit. Orders: Orders XR elbow LT min 3V Today M25.529 - Pain in unspecified elbow NE nerve conduction velocity Today G56.22 - Lesion of ulnar nerve, left upper limb, M77.12 - Lateral epicondylitis, left elbow NE electromyogram (EMG) Today G56.22 - Lesion of ulnar nerve, left upper limb, M77.12 - Lateral epicondylitis, left elbow Coding Level of Care Code New Pt Level 4 (01949) Add On Problem Visit Only Diagnoses Lateral epicondylitis, left elbow M77.12 Cubital tunnel syndrome on left G56.22
[2025-02-06 09:59] VITALS: BMI 33.2
== END 2025-02-06 10:30 | disposition home or self-care (01) ==
PROVIDERS: PCP Family Medicine; Visit Provider Physician Assistant
DX: M77.12 Lateral epicondylitis, left elbow (principal); G56.22 Lesion of ulnar nerve, left upper limb
CPT/HCPCS: 99204; G2211

== ENCOUNTER → 2025-02-06 09:45 | Outpatient (BNV) | payer OTHER, SELFPAY | PROVIDERS: Visit Provider Radiology Diagnostic Radiology | DX: M25.722 Osteophyte, left elbow (principal) | CPT/HCPCS: 73080 ==

== ENCOUNTER 2025-02-06 15:50 | Outpatient (REF) | payer OTHER, SELFPAY ==
--- NOTE | ~2025-02-06 | XR_ITS ---
EXAMINATION: XR ELBOW, LEFT CLINICAL INFORMATION: M25.529 - Pain in unspecified elbow COMPARISON: None available. TECHNIQUE: AP, lateral, and oblique views of the left elbow. FINDINGS: Small marginal osteophyte is present on the medial margin of the coronoid. There is no joint diastases or malalignment. There is no evidence of a joint effusion. No fracture is visualized. XR/XR elbow LT min 3V IMPRESSION: Minimal degenerative change in the ulnohumeral joint. Electronically signed by: Mani Vazquez MD 02/06/2025 09:54 AM EST
--- OUTSIDE RECORDS SUMMARY | 2025-02-06 08:14 | XMS_ITS | Clinical Summary ---
Author Organization [facility] Prior to 07/19/[address] [place] [address] Care Team Providers Care Clinical Nursing Instructor Name Role Phone Claude Kelsey MD Primary [...] partial c olectomy (open, emergent, no colostomy) [place] 06/22/2023 Social History Tobacco Use Types Packs/Day [...] age to complete this topic Care Teams Clinical Nursing Instructor Relationship Specialty Start Date End Date Claude Kelsey MD [address] [place] [id number] PCP - General Family Medicine 12/11/18
== END 2025-02-06 15:51 | disposition home or self-care (01) ==
LOC: HO.HOSX 15:50
PROVIDERS: Visit Provider Physician Assistant
DX: M77.12 Lateral epicondylitis, left elbow (principal); G56.22 Lesion of ulnar nerve, left upper limb; Z79.1 Long term (current) use of non-steroidal anti-inflammatories (NSAID)
CPT/HCPCS: 73080